=== PATIENT | female | born 1955 | race Caucasian/White ===

== ENCOUNTER 2021-04-13 18:15 | Emergency (ER) | payer MEDICARE, MEDICAID, SELFPAY ==
[2021-04-13 18:41] VITALS: BP 160/85; PULSE 69; RESP 18; TEMP 37.4; O2SAT 95
[2021-04-13] MEDS: nitroglycerin 1 gm/inch oint Pkt 0.5 INCH TOPICAL (21:25)
--- NOTE | 2021-04-14 02:12 | XRR_ITS ---
PROCEDURE INFORMATION: Exam: XR Left Foot Exam date and time: 04/14/2021 2:12 AM Age: 65 years old Clinical indication: Pain; Toes; Left; Additional info: Toe pain TECHNIQUE: Imaging protocol: XR Left foot. Views: 3 or more views. COMPARISON: No relevant prior studies available. FINDINGS: Bones/joints: Low density bone consistent with osteopenia/osteoporosis. Soft tissues: Normal. XR/XR foot LT min 3V* [id number] IMPRESSION: No acute findings.
--- NOTE | 2021-04-14 02:12 | USR_ITS ---
PROCEDURE INFORMATION: Exam: US Duplex Left Lower Extremity Arteries Or Arterial Bypass Grafts Exam date and time: 04/14/2021 2:12 AM Age: 65 years old Clinical indication: Pain; Toes; Left; Additional info: Toe discoloration TECHNIQUE: Imaging protocol: Left Real-time duplex scan of the arteries or arterial bypass grafts of the left lower extremity with 2-D eubanks scale, color Doppler flow and spectral waveform analysis. Images documented and saved. COMPARISON: CR (LOW EXM, ) 04/14/2021 2:39 AM FINDINGS: Left common femoral artery: No occlusion or significant stenosis. Normal waveform. Left superficial femoral artery: No occlusion or significant stenosis. Normal waveform. Left popliteal artery: 6-1 velocity spike above and below the proximal left popliteal artery consistent with greater than 75% stenosis. Left calf/foot arteries: No occlusion or significant stenosis in the visualized arteries. Normal waveforms. Dorsalis pedis artery is patent. US/[place] [id number] IMPRESSION: 6-1 velocity spike above and below the proximal left popliteal artery consistent with greater than 75% stenosis.
--- NOTE | 2021-04-14 02:26 | W.ED.GENADLT ---
HPI - General Adult General: Chief complaint: General Medical Stated complaint: DX W/RAYNAUD'S PHENOMENON:TOES BLACK/BURNING Time Seen by Provider: 04/13/21 20:48 Source: patient Mode of arrival: ambulatory Limitations: no limitations History of Present Illness: HPI narrative: 65-year-old female states she been having discoloration to her left great toe along with some pain over the last month. She states she is seen her nurse practitioner who believed that it was Raynaud's. States the pain is increasing. States pain is currently a 4 out of 10. Denies any other injuries. Denies any fever. Associated symptoms: Deny chest pain, dyspnea, headache(s), nausea, rash or vomiting Review of Systems Const: Denies: fever(s), chills, body aches or change in appetite Eyes: Denies: blurry vision or eye discomfort ENMT: Denies: throat pain or dental pain Card: Denies: chest pain Resp: Denies: dyspnea GI: Denies: abdominal pain, nausea, vomiting or diarrhea : Denies: dysuria Musc: Reports: extremity pain Skin/Breast: Denies: rash Neuro: Denies: headache(s) Psych: Denies: depression Toan/Lymph: Denies: easy bruising All/Imm: Denies: urticaria Physical Exam Const: COMMON NORMALS: no acute distress, patient oriented x3 and healthy appearing HENMT: COMMON NORMALS: normocephalic and atraumatic HEAD & SCALP: normocephalic and atraumatic Eye: COMMON NORMALS: Equal, round and reactive pupils present and EOMs intact bilaterally PUPIL: Yes Equal, round and reactive pupils present Neck/C-Spine: COMMON NORMALS: full ROM and supple Chest: COMMONS NORMALS: normal inspection of the chest and normal palpation of entire chest wall Resp: COMMON NORMALS: normal respiratory effort, No retractions, No use of accessory muscles and clear to auscultation bilaterally AUSCULTATION: clear to auscultation bilaterally Cardio: COMMON NORMALS: regular rate, regular rhythm and No murmurs present (Cardio) RATE: regular rate RHYTHM: regular rhythm GI: COMMON NORMALS: Normal to inspection, nondistended, normoactive bowel sounds present, Soft to palpation, non-tender and no masses PALPATION: Yes Soft to palpation Extremity: COMMON NORMALS: full ROM NARRATIVE EXTREMITY EXAM: Bluish discoloration to the left toe distal pulses intact Neuro: COMMON NORMALS: patient oriented x3, moves all extremities and no focal motor deficits Psych: COMMON NORMALS: mental status grossly normal, Normal thought process present and cooperative THOUGHT PROCESS: Normal thought process present Skin: COMMON NORMALS: no rashes or lesions noted and no wounds GENERAL SKIN EXAM: no rashes or lesions noted Course Vital Signs: Vital signs: Vital Signs Temperature 99.3 F 04/13/21 18:41 Pulse Rate 69 04/13/21 18:41 Respiratory Rate 18 04/13/21 18:41 Blood Pressure 160/85 04/13/21 18:41 Pulse Oximetry 95 04/13/21 18:41 MDM - General Adult MDM Narrative: Medical decision making narrative: Patient presents here with toe discoloration has been going on for little over a month. Ultrasound here does show stenosis in the popliteal artery. She has dorsal pedis and posterior tib pulses. I spoke to Dr. Adams who recommended follow-up in his clinic in 1 to 2 days and will have her take baby aspirin daily. Patient is to return if pain worsens. She understands agrees to plan. Lab Data: Labs: Lab Results 04/14/21 Range/Units 02:24 WBC 8.4 (4.0-10.0) 10^3/ uL RBC 4.65 (4.1-5.3) 10^6/u L Hgb 15.7 H (11.5-15.3) g/dL Hct 45.9 (37.0-47.0) % MCV 98.7 (81-99) fl MCH 33.8 (28.0-34.0) pg MCHC 34.2 (30.0-36.0) g/dL RDW 13.6 (12.1-15.1) % Plt Count 217 (130-400) 10^3/c mm MPV 9.7 (7.4-10.4) fL Neut % (Auto) 63.9 % Lymph % (Auto) 28.2 % [place] % (Auto) 5.7 % Eos % (Auto) 1.0 % Baso % (Auto) 0.6 % Neut # (Auto) 5.35 (1.8-7.7) 10^3/u L Lymph # (Auto) 2.4 (0.8-4.8) 10^3/u L [place] # (Auto) 0.5 (0.2-0.9) 10^3/u L Eos # (Auto) 0.1 (0.0-0.8) 10^3/u L Baso # (Auto) 0.1 (0.0-0.1) 10^3/u L Nucleated RBC % (a uto) 0 % Nucleated RBCs # 0.0 /100WBC Discharge Plan Discharge Patient Disposition: Home Clinical Impression: Popliteal artery stenosis, left Condition: Stable Prescriptions: New aspirin 81 mg tablet,chewable 81 mg PO DAILY Qty: 30 RF: 0 Discharge Orders: Discharge ED (Routine); Ordered 04/14/21 Ordered By: Georgina Jackson Referrals: David Casillas M.D [Physician] - 1-3 days Ines New [Primary Care Provider] - Discharge Diet: Advance as tolerated Discharge Activity: Resume usual activity Patient Instructions: Peripheral Vascular Disorders (ED) Coding Level of Care Code ED Shipping Services Sales Representative for Chg Fwd Exam Comprehensive
[2021-04-14 02:33] LABS: Basophils # 0.1 10^3/uL (0.0-0.1); Basophils % 0.6 %; Eosinophils # 0.1 10^3/uL (0.0-0.8); Hematocrit 45.9 % (37.0-47.0); Hemoglobin 15.7 g/dL (11.5-15.3); Lymphocytes # 2.4 10^3/uL (0.8-4.8); Lymphocytes % 28.2 %; Mean Corpuscular HGB Conc 34.2 g/dL (30.0-36.0); Mean Corpuscular Hemoglobin 33.8 pg (28.0-34.0); Mean Corpuscular Volume 98.7 fl (81-99); Mean Platelet Volume 9.7 fL (7.4-10.4); Monocytes # 0.5 10^3/uL (0.2-0.9); Monocytes % 5.7 %; Neutrophils # 5.35 10^3/uL (1.8-7.7); Neutrophils % 63.9 %; Nucleated Red Blood Cells % 0 %; Platelet Count 217 10^3/cmm (130-400); Red Blood Count 4.65 10^6/uL (4.1-5.3); Red Cell Distribution Width 13.6 % (12.1-15.1); White Blood Count 8.4 10^3/uL (4.0-10.0)
[2021-04-14] MEDS: diphenoxylate/atropine Tablet 1 TAB PO (02:40)
[2021-04-14 04:35] VITALS: BP 157/82; PULSE 62; RESP 17; O2SAT 96
--- NOTE | 2021-04-14 14:18 | DCPLANNER ---
campaign management senior manager had message to schedule a follow up appointment for patient with [facility]. campaign management senior manager called [facility], spoke with Vicki, gave clinic patients information. A follow up appointment is scheduled for Saturday, April 17, 2021 at 10:[address] Davison. campaign management senior manager called patient and gave patient the appointment information.
--- NOTE | 2021-04-22 11:58 | DCPLANNER ---
Patient had a follow up appointment scheduled for 04.17.21 with [facility] - appointment was cancelled.
== END 2021-04-14 04:35 | disposition home or self-care (01) ==
PROVIDERS: Emergency Provider Emergency Medicine; PCP Nurse Practitioner Family
DX: I70.202 Unspecified atherosclerosis of native arteries of extremities, left leg (principal)
CPT/HCPCS: 73630; 85025; 93926; 99283

== ENCOUNTER 2021-05-29 08:21 | Outpatient (CLI) | payer MEDICARE, MEDICAID, SELFPAY ==
--- NOTE | 2021-05-29 08:30 | CT_ITS ---
WS: [id number] CTA ABDOMINAL AORTA WITH RUNOFF TECHNIQUE: Contrast enhanced CTA of the abdominal aorta with bilateral lower extremity runoff. Multip lanar reformatted images were obtained. MIP reformats were also reviewed. CLINICAL INFORMATION: I73.9 - Peripheral vascular disease, unspecified COMPARISON: None. DLP: 1719.[address] scans at [facility] use at least one of these dose optimization techniques: automated e xposure control; mA and/or kV adjustment per patient size (includes targeted exams where dose is matc hed to clinical indication); or iterative reconstruction. FINDINGS: Normal caliber abdominal aorta with moderate calcified atheromatous disease. Celiac and SMA origins are patent. Mild to moderate stenosis proximal SMA. Renal artery origins are patent. SHIRA is patent.Heterogeneous peripheral enhancing lesion dome liver measuring 1.9 x 2.7 CM. This is indetermi nant and may represent cavernous hemangioma but metastatic disease not excluded. This can be further evaluated with ultrasound and/or triphasic liver CT. Cholecystectomy. Thickening of both adrenal glan ds left greater than right. Normal renal parenchymal enhancement. No hydronephrosis. Normal pancreati c parenchymal enhancement. Normal GE junction. Sigmoid diverticulosis. Chronic anterior wedging lower thoracic spine. Mild chronic compression super ior endplate L3. RIGHT: Right common iliac artery is patent with moderate calcified atheromatous disease. External and internal iliac arteries are patent. Common femoral artery is patent. Mild stenosis of the SFA origin . Deep femoral artery is patent. Superficial femoral artery is patent to the adductor hiatus. Mild st enosis proximal popliteal artery which remains patent. Diminutive and stenotic popliteal artery with multisegmental moderate to severe stenosis above the knee. Popliteal artery remains patent. Severe st enosis at the level of the knee joint. Diminutive but patent three-vessel runoff to the ankle. LEFT: Left common iliac artery is patent with moderate calcified atheromatous disease. Internal iliac artery is patent. External iliac artery is patent. Common femoral artery is patent. Deep femoral art seymour is patent. Moderate stenosis of the SFA origin which remains patent. Superficial femoral artery i s patent to the adductor hiatus. Moderate stenosis proximal popliteal artery. Multilevel moderate to severe segmental stenosis popliteal artery is nearly occluded just above the knee and at the knee jourdan nt. Short segment of occlusion at the level of the knee joint in the popliteal fossa. Reconstitution with severe stenosis at the trifurcation. Tiny atrophic dominant two-vessel runoff to the ankle. Poor flow in the posterior tibial artery which is essentially occluded. CT/CT angio abd aorta runof [id number] IMPRESSION: 1. RIGHT: Moderate to severe multilevel segmental stenosis right popliteal art seymour worse at the level of the knee joint. Popliteal artery remains patent to th e trifurcation with persistent but diminutive three-vessel runoff to the ankle. 2. LEFT: Multilevel moderate to severe segmental stenosis popliteal artery whi ch is occluded or nearly occluded at the level of the knee joint. This reconsti tutes with severe stenosis at the trifurcation and poor dominant two-vessel ru noff to the ankle. 3. Normal caliber abdominal aorta. Mild to moderate stenosis proximal SMA. 4. Suspicious heterogeneous irregular peripheral enhancing lesion dome of the liver measuring 1.9 x 2.7 CCM. This is indeterminant and may represent cavernou s hemangioma but metastatic disease not excluded. This can be further evaluated with ultrasound and/or triphasic liver CT. 5. Prior cholecystectomy.
[2021-05-29 09:40] LABS: Blood Urea Nitrogen 15 mg/dL (8-23)
[2021-05-29] MEDS: iohexol 350 mg/mL 100 mL Btl IV (09:55)
== END 2021-05-29 08:22 | disposition home or self-care (01) ==
LOC: RAD 08:24
PROVIDERS: PCP Nurse Practitioner Family; Visit Provider Internal Medicine Cardiovascular Disease
DX: I73.9 Peripheral vascular disease, unspecified (principal); I70.8 Atherosclerosis of other arteries; Z90.49 Acquired absence of other specified parts of digestive tract
CPT/HCPCS: 36415; 75635; 82565; 84520

== ENCOUNTER 2021-06-03 10:57 | Outpatient (CLI) | payer MEDICARE, MEDICAID, SELFPAY ==
--- NOTE | 2021-06-03 11:10 | USCV_ITS ---
Magana Edwige Age: 65 Gender: F : 1955 Exam Date: 06/03/2021 11:36 Ordering Phys: Shireen Goode MD ([email or web address]) Technologist: Cherry Hooper Exam Location: [facility] [place] Indication: EMBOLIC EVENT BP: / HR: 56 Rhythm: Sinus Technical Quality: Technically difficult study MEASUREMENTS (Male / Female) Normal Values 2D ECHO LV Diastolic Diameter PLAX 3.5 cm 4.2 - 5.9 / 3.9 - 5.3 cm LV Systolic Diameter PLAX 2.0 cm LV Chamber Size 3.5 cm IVS Diastolic Thickness 1.3 cm 0.6 - 1.0 / 0.6 - 0.9 cm IVS Systolic Thickness 1.2 cm LVPW Diastolic Thickness 1.4 cm 0.6 - 1.0 / 0.6 - 0.9 cm LVPW Systolic Thickness 2.2 cm RV Chamber Size 3.3 cm LVOT Diameter 2.7 cm LV Ejection Fraction 2D Teich 73.9 % LV Ejection Fraction MOD 2C 46.3 % LV Ejection Fraction 2C AL 49.7 % LA Diameter 2.9 cm LA Width 3.8 cm LA Height 4.1 cm RA Width 3.2 cm RA Height 3.9 cm Aorta at Sinotubular Diameter 3.5 cm M-MODE LV Diastolic Diameter MM 1.9 cm 4.2 - 5.9 / 3.9 - 5.3 cm LV Systolic Diameter MM 0.6 cm LV Ejection Fraction MM Teich 95.8 % IVS Diastolic Thickness MM 0.7 cm 0.6 - 1.0 / 0.6 - 0.9 cm IVS Systolic Thickness MM 0.9 cm LVPW Diastolic Thickness MM 0.7 cm 0.6 - 1.0 / 0.6 - 0.9 cm LVPW Systolic Thickness MM 0.8 cm Aortic Annulus Diameter 3.5 cm LA Ao Ratio MM 0.8 MV E Point Septal Separation 0.3 cm DOPPLER AV Peak Velocity 84.0 cm/s LVOT Peak Velocity 58.0 cm/s AV Area Cont Eq vti 5.2 cm squared AV Area Cont Eq pk 4.0 cm squared MV Area PHT 3.6 cm squared Mitral E to A Ratio 0.8 MV E' Velocity 24.5 cm/s Mitral E to MV E' Ratio 4.5 Mitral E to LV E' Lateral Ratio 6.1 Mitral E to LV E' Septal Ratio 3.6 TR Peak Velocity 208.5 cm/s TR Peak Gradient 17.4 mmHg TR Mean Velocity 160.8 cm/s TR Mean Gradient 11.7 mmHg TR Velocity Time Integral 64.1 cm TV Peak E Velocity 50.0 cm/s Right Atrial Pressure 3.0 mmHg Pulmonary Artery Systolic Pressu 20.4 mmHg PV Peak Velocity 50.0 cm/s RV Acceleration Time 0.2 s RV Ejection Time 0.3 s RV AcT/ET 0.5 FINDINGS Left Ventricle Normal left ventricular cavity size. Mildly decreased left ventricular systolic function. Left ventricular ejection fraction is estimated at 50 %. There is hypokinesis of basal to mid inferolateral galo. Grade II diastolic dysfunction, moderately elevated filling pressures. Right Ventricle Normal right ventricular size and systolic function. Right ventricular systolic pressure 25 mmHg. Right Atrium Normal right atrial size. Left Atrium Left atrial not well visualized. Possibly mildly increased left atrial size. Mitral Valve Mild mitral annular calcification. No mitral valve stenosis. Trace mitral valve regurgitation. Aortic Valve Aortic valve not well visualized. No aortic valve stenosis. No aortic valve regurgitation. Tricuspid Valve Tricuspid valve not well visualized. Pulmonic Valve Pulmonic valve not well visualized. Pericardium No pericardial effusion. Aorta Aorta not well visualized. CONCLUSIONS 1. This is a technically difficult study. 2. Normal left ventricular cavity size. Mildly decreased left ventricular systolic function. Left ventricular ejection fraction is estimated at 50 %. There is hypokinesis of basal to mid inferolateral galo. Grade II diastolic dysfunction, moderately elevated filling pressures. 3. Pulmonary artery pressure estimated 25 mmHg. 4. No prior similar studies to compare. Shireen Goode MD (Electronically Signed) Final Date: 03 June 2021 13:25 S
== END 2021-06-03 10:58 | disposition home or self-care (01) ==
LOC: RAD 11:00
PROVIDERS: PCP Nurse Practitioner Family; Visit Provider Internal Medicine Cardiovascular Disease
DX: I73.9 Peripheral vascular disease, unspecified (principal); I10 Essential (primary) hypertension
CPT/HCPCS: 93306

== ENCOUNTER → 2022-02-15 10:38 | Outpatient (BNVA) | payer MEDICARE, MEDICAID, SELFPAY | PROVIDERS: PCP Nurse Practitioner Family; Visit Provider Nurse Practitioner Family | DX: M54.59 Other low back pain (principal); M25.551 Pain in right hip; M47.896 Other spondylosis, lumbar region; M16.11 Unilateral primary osteoarthritis, right hip | CPT/HCPCS: 72080; 72100; 73502 ==

== ENCOUNTER 2022-02-18 16:49 | Inpatient (IN) | payer MEDICARE, MEDICAID, SELFPAY ==
[2022-02-18] VITALS (7 sets, daily range): BP systolic 132–180; BP diastolic 68–80; PULSE 57–69; RESP 14–22; TEMP 36.6; O2SAT 97–98; BMI 20.9; BMI 21.8
--- NOTE | 2022-02-18 17:00 | ECG_ITS ---
[facility] Test Date: 2022-02-18 Pat Name: Edwige Magana Department: Room: Gender: Female Hvac Technician: : 1955 Requested By: Travis Jack Order Number: [id number] Heather MD: David Casillas M.D. Measurements Intervals [place] Rate: 58 P: 59 DE: 167 QRS: 68 QRSD: 94 T: 61 QT: 442 QTc: 437 Interpretive Statements SINUS BRADYCARDIA NONSPECIFIC T-WAVE ABNORMALITY No previous ECG available for comparison Electronically Signed On 02-18-2022 18:53:28 CDT by David Casillas M.D. [id number]
--- NOTE | 2022-02-18 17:00 | XRR_ITS ---
PROCEDURE INFORMATION: Exam: XR Chest Exam date and time: 02/18/2022 5:42 PM Age: 66 years old Clinical indication: Chest wall pain; Additional info: Chest pain TECHNIQUE: Imaging protocol: Radiologic exam of the chest. Views: 1 view. COMPARISON: CR XR thoracolumbar junct [id number] 02/15/2022 11:00 AM FINDINGS: Lungs: The lungs are clear. Pleural spaces: Unremarkable. No pleural effusion. No pneumothorax. Heart/Mediastinum: Unremarkable. No cardiomegaly. Bones/joints: Unremarkable. XR/XR chest 1V portable [id number] IMPRESSION: No acute cardiopulmonary abnormality.
--- NOTE | 2022-02-18 17:26 | ED_ITS ---
HPI - Chest Pain General: Chief Complaint: Chest Pain Stated Complaint: CHEST PAIN Time Seen by Provider: 02/18/22 16:49 Source: patient Mode of arrival: EMS Limitations: no limitations History of Present Illness: 66-year-old female with a known history of peripheral vascular disease who still is actively smoking comes in complaining of chest pain has been going on for over a day now. States pain radiates at times into the left side of the jaw and into the shoulders and back. She did not get diaphoretic with that she did get mildly short of breath. She does take aspirin daily as well as atorvastatin and propranolol. She denies any fever sweats or chills. She denies any nausea vomiting or diarrhea with this. She is not had previous cardiac evaluation for coronary artery disease. Previous echocardiogram did show some hypokinesis in the inferior region she was scheduled for stress test but it has not yet been completed MD complaint: chest pain Pertinent past history: other (Peripheral vascular disease) Onset (ago): hour(s) Timing of current episode: episodic Prior episodes: Yes Onset: during rest Pain location: substernal and left chest Pain radiation: left arm, back, neck and jaw/teeth Severity: moderate Quality: aching and heaviness Relieving factors: nothing Exacerbating factors: nothing Associated symptoms: Reports dyspnea; Deny abdominal pain, diaphoresis, fever(s), leg edema, nausea, palpitations, sense of impending doom, syncope or vomiting Treatment prior to arrival: none Risk Factors: Coronary artery disease risk factors: smoking history, hyperlipidemia and hypertension Review of Systems Const: Denies: fever(s), chills, fatigue, malaise or diaphoresis ENMT: Denies: throat pain, ear or mastoid pain, nasal discharge or nasal congestion Card: Reports: chest pain; Denies: palpitations, edema, swelling of feet/ankles or syncope Resp: Reports: dyspnea; Denies: productive cough, non-productive cough or wheezing GI: Denies: abdominal pain, nausea or vomiting : Denies: flank pain, difficulty voiding, dysuria, urinary frequency or urinary urgency Skin/Breast: Denies: rash or pruritus [facility] ED PFSH: Medical History Adrenal gland anomaly Chest pain CHF (congestive heart failure), NYHA class III Hip dislocation, right Hyperlipidemia Hypertension Liver cell damage PAD (peripheral artery disease) Pancreatitis Seizure Stomach disease Surgical History History of appendectomy Hx of cholecystectomy Tubal ligation status Family History Other CAD (coronary artery disease) Social History Smoking and tobacco status: current every day smoker Female Reproductive History: Spontaneous abortions: No Physical Exam Const: GENERAL APPEARANCE: cooperative and comfortable ORIENTATION/CONSCIOUSNESS: Yes awake, Yes oriented to person, Yes oriented to place and Yes oriented to time HENMT: COMMON NORMALS: normocephalic, atraumatic and hearing grossly normal bilaterally HEAD & SCALP: normocephalic and atraumatic Neck/C-Spine: COMMON NORMALS: no JVD Resp: COMMON NORMALS: normal respiratory effort, No retractions, No use of accessory muscles and clear to auscultation bilaterally AUSCULTATION: clear to auscultation bilaterally Cardio: COMMON NORMALS: no JVD, regular rate, regular rhythm and No murmurs present (Cardio) RATE: regular rate RHYTHM: regular rhythm GI: COMMON NORMALS: Soft to palpation and No hepatosplenomegaly present AUSCULTATION: Yes normoactive bowel sounds PALPATION: Yes Soft to palpation, No Tenderness to palpation present (GI), No Guarding due to palpation present (GI) and Yes No hepatosplenomegaly present Extremity: COMMON NORMALS: normal to inspection, capillary refill normal, no clubbing, cyanosis or edema, no calf tenderness and no pedal edema Neuro: SENSORIUM/ORIENTATION: Yes oriented to person, Yes oriented to place and Yes oriented to time Skin: COMMON NORMALS: no rashes or lesions noted GENERAL SKIN EXAM: no rashes or lesions noted Course Vital Signs: Vital signs: Vital Signs Temperature 97.6 F 02/19/22 04:00 Pulse Rate 66 02/19/22 05:12 Respiratory Rate 17 02/19/22 04:00 Blood Pressure 125/71 02/19/22 04:00 Pulse Oximetry 96 02/19/22 04:00 MDM - Chest Pain Medical Decision Making Patient having anginal-like symptoms. She is reporting improvement and resolution of symptoms after nitro. She did have a stress test 2 days ago is not available in the system at this point. We will go ahead and place her in observation given her Plavix Lovenox and Nitropaste. Discussed with hospitalist orders written. Anticipating cardiology consult. Medical Records I reviewed the patient's medical records. Lab Data I reviewed the patient's lab results. : 02/19/22 01:54 02/19/22 01:54 Radiology Impressions Chest X-Ray 02/18/22 17:00 IMPRESSION: No acute cardiopulmonary abnormality. Head CT 02/18/22 18:55 IMPRESSION: No acute intracranial abnormality. Laboratory Results WBC 6.5 10^3/uL (4.0-10.0) 02/18/22 17:35 RBC 3.82 10^6/uL (4.1-5.3) L 02/18/22 17:35 Hgb 13.3 g/dL (11.5-15.3) 02/18/22 17:35 Hct 38.7 % (37.0-47.0) 02/18/22 17:35 MCV 101.3 fl (81-99) H 02/18/22 17:35 MCH 34.8 pg (28.0-34.0) H 02/18/22 17:35 MCHC 34.4 g/dL (30.0-36.0) 02/18/22 17:35 RDW 14.0 % (12.1-15.1) 02/18/22 17:35 Plt Count 196 10^3/cmm (130-400) 02/18/22 17:35 MPV 10.7 fL (7.4-10.4) H 02/18/22 17:35 Neut % (Auto) 55.0 % 02/18/22 17:35 Lymph % (Auto) 37.9 % 02/18/22 17:35 [place] % (Auto) 5.7 % 02/18/22 17:35 Eos % (Auto) 0.8 % 02/18/22 17:35 Baso % (Auto) 0.3 % 02/18/22 17:35 Neut # (Auto) 3.57 10^3/uL (1.8-7.7) 02/18/22 17:35 Lymph # (Auto) 2.5 10^3/uL (0.8-4.8) 02/18/22 17:35 [place] # (Auto) 0.4 10^3/uL (0.2-0.9) 02/18/22 17:35 Eos # (Auto) 0.1 10^3/uL (0.0-0.8) 02/18/22 17:35 Baso # (Auto) 0.0 10^3/uL (0.0-0.1) 02/18/22 17:35 Nucleated RBC % (auto) 0 % 02/18/22 17:35 Nucleated RBCs # 0.0 /100WBC 02/18/22 17:35 D-Dimer 0.66 ug/mIFEU (0-0.59) H 02/18/22 17:35 Sodium 136 mmol/L (136-145) 02/18/22 17:35 Potassium 4.0 mmol/L (3.5-5.1) 02/18/22 17:35 Chloride 101 mmol/L (98-107) 02/18/22 17:35 Carbon Dioxide 25 mmol/L (22-29) 02/18/22 17:35 Anion Gap 14.0 (5-19) 02/18/22 17:35 BUN 21 mg/dL (8-23) 02/18/22 17:35 Creatinine 0.6 mg/dL (0.5-0.9) 02/18/22 17:35 GFR Calculation 100.0 mL/min (90-130) 02/18/22 17:35 Glucose 85 mg/dL (65-115) 02/18/22 17:35 Estimat Average Glucose 91 02/18/22 17:35 Hemoglobin A1c 4.8 % (4.0-6.0) 02/18/22 17:35 Calculated Osmolality 284 mOsm/kg (285-295) L 02/18/22 17:35 Calcium 8.7 mg/dL (8.5-10.5) 02/18/22 17:35 Total Bilirubin 0.2 mg/dL (0.15-1.2) 02/18/22 17:35 AST 11 U/L (0-32) 02/18/22 17:35 ALT < 5 U/L (0-33) 02/18/22 17:35 Alkaline Phosphatase 52 IU/L (35-105) 02/18/22 17:35 Troponin T Baseline 8 ng/L (0-10) 02/18/22 17:35 C-Reactive Protein 3.0 mg/L (0.0-4.9) 02/18/22 17:35 Total Protein 6.1 g/dL (6.6-8.7) L 02/18/22 17:35 Albumin 3.6 g/dL (3.5-5.2) 02/18/22 17:35 Globulin 2.5 g/dL (1.3-4.6) 02/18/22 17:35 TSH 1.76 uIU/mL (0.27-4.20) 02/18/22 17:35 Discharge Plan Discharge Patient Disposition: Admitted As Inpatient Admit Provider: Checo Browning Clinical Impression: Unstable angina pectoris, PAD (peripheral artery disease), Chest pain, Hypertension Condition: Stable Coding Level of Care Code ED Foster Parent for Chg Fwd Exam Comprehensive
[2022-02-18 17:48] LABS: Basophils % 0.3 %; Eosinophils # 0.1 10^3/uL (0.0-0.8); Eosinophils % 0.8 %; Hematocrit 38.7 % (37.0-47.0); Hemoglobin 13.3 g/dL (11.5-15.3); Lymphocytes # 2.5 10^3/uL (0.8-4.8); Lymphocytes % 37.9 %; Mean Corpuscular HGB Conc 34.4 g/dL (30.0-36.0); Mean Corpuscular Hemoglobin 34.8 pg (28.0-34.0); Mean Corpuscular Volume 101.3 fl (81-99); Mean Platelet Volume 10.7 fL (7.4-10.4); Monocytes # 0.4 10^3/uL (0.2-0.9); Monocytes % 5.7 %; Neutrophils # 3.57 10^3/uL (1.8-7.7); Nucleated Red Blood Cells % 0 %; Platelet Count 196 10^3/cmm (130-400); Red Blood Count 3.82 10^6/uL (4.1-5.3); White Blood Count 6.5 10^3/uL (4.0-10.0)
--- NOTE | 2022-02-18 18:01 | PC.PHAR ---
pt states she takes care of her own medications-pt states Dr.Sinha mayorga her lisinopril 40mg daily filled on 01/06/22,lipitor 80mg daily filled on 12/21/21 90d/s, and spironolactone 25mg daily filled on 12/11/21 90d/s 2 weeks ago-pt states she is only taking the medications entered-
[2022-02-18] MEDS: nitroglycerin 1 gm/inch oint Pkt 1 INCH TOPICAL (18:02)
[2022-02-18 18:11] LABS: Troponin(5th) Baseline 8 ng/L (0-10)
[2022-02-18 18:13] LABS: Alanine Aminotransferase < 5 U/L (0-33); Albumin Level 3.6 g/dL (3.5-5.2); Alkaline Phosphatase 52 IU/L (35-105); Aspartate Amino Transferase 11 U/L (0-32); Blood Urea Nitrogen 21 mg/dL (8-23); Calcium 8.7 mg/dL (8.5-10.5); Carbon Dioxide 25 mmol/L (22-29); Chloride 101 mmol/L (98-107); Creatinine Clr Calc Pharmacy 66.9103; Globulin 2.5 g/dL (1.3-4.6); Glucose 85 mg/dL (65-115); Osmolality Calculated 284 mOsm/kg (285-295); Sodium 136 mmol/L (136-145); Total Bilirubin 0.2 mg/dL (0.15-1.2); Total Protein 6.1 g/dL (6.6-8.7)
--- NOTE | 2022-02-18 18:17 | PM.HP ---
Providers/Chief Complaint Primary Care Provider: Ines New Chief Complaint: CHEST PAIN History of Present Illness Edwige Magana is a 66 year old female with established history of peripheral artery disease, recently saw Dr. Goode for syncopal event, Dr. Goode requested records from outside facility for recent carotid Doppler and a stress test, as per the patient this was done this Tuesday however I am not able to see the report yet patient is here for chief complaint of worsening of chest pain radiating towards her jaw. Previous echo revealed ejection fraction 50% grade 2 diastolic dysfunction. Patient is presenting with chief complaint of intermittent chest pain which started yesterday around afternoon. Patient is stating that she has been having stabbing sensation just below her left breast, she would notice that this pain sometimes will travel towards her left jaw, associated with numbness of left arm. She has not noticed recent fever, diarrhea, upper respite tract infection. She has presented to the hospital for worsening of her symptoms today. In the ER Baseline troponin is 8, EKG is nonspecific T wave changes, heart rate in 60s blood pressure stable She is extremely weak lethargic Noticed right-sided facial droop however NIH will be 1 for mild right-sided facial droop Not a candidate for tPA however she does not have typical strokelike symptoms She does carry history of seizure I spoke with Dr. Goode, Dr. Connor stating that she did receive the results of carotid Doppler and stress test which are sitting on her desk, she will review them and let us know, I have informed the patient and her family that Dr. Goode will see her tomorrow morning She will be kept n.p.o. Initiated ACS protocol I would not give her metoprolol because of borderline low heart rate continue antiepileptics Review of Systems Const: Reports: chills and body aches Eyes: Denies: change in vision ENMT: Denies: throat pain Card: Reports: chest pain Resp: Reports: dyspnea GI: Denies: abdominal pain : Denies: flank pain Musc: Reports: back pain Skin/Breast: Denies: rash Neuro: Reports: headache(s) Psych: Reports: anxiety Endo: Denies: polyuria Toan/Lymph: Denies: easy bruising All/Imm: Denies: urticaria Medications/Allergies Home Medications Medication Instructions Recorded Confirmed Last Taken Type escitalopram oxalate 20 mg tablet 20 mg PO DAILY 04/30/21 02/18/22 02/18/22 History lorazepam 1 mg tablet 1 mg PO BID PRN 04/30/21 02/18/22 Unknown History potassium chloride 20 mEq 20 meq PO QPM 04/30/21 02/18/22 Unknown History tablet,extended release ropinirole 1 mg tablet 1 mg PO BEDTIME 04/30/21 02/18/22 Unknown History bupropion HCl 150 mg 24 hr tablet, 150 mg PO QAM 07/30/21 02/18/22 02/18/22 History extended release pantoprazole 40 mg tablet,delayed 40 mg PO DAILY 07/30/21 02/18/22 02/18/22 History release propranolol 40 mg tablet 40 mg PO BID tab 07/30/21 02/18/22 02/18/22 12:00 History aspirin 81 mg chewable tablet 81 mg PO BEDTIME 02/18/22 02/18/22 Unknown History carbamazepine 200 mg tablet See Rx Instructions .ROUTE .COMPLEX 02/18/22 02/18/22 02/18/22 History divalproex 250 mg tablet,extended 500 mg PO BID 02/18/22 02/18/22 02/18/22 12:00 History release 24 hr ergocalciferol (vitamin D2) 1,250 50,000 unit PO Q7D 02/18/22 02/18/22 02/13/22 History mcg (50,000 unit) capsule tizanidine 4 mg tablet 4 mg PO BEDTIME 02/18/22 02/18/22 02/18/22 History Allergies Allergy/AdvReac Type Severity Reaction Status Date / Time No Known Allergies Allergy Verified 02/18/22 17:53 PFSH Acute PFSH: Medical History (Updated 02/18/22 @ 18:51 by Checo Browning MD) Adrenal gland anomaly Chest pain CHF (congestive heart failure), NYHA class III Hip dislocation, right Hyperlipidemia Hypertension Liver cell damage PAD (peripheral artery disease) Pancreatitis Seizure Stomach disease Surgical History History of appendectomy Hx of cholecystectomy Tubal ligation status Family History (Updated 02/18/22 @ 18:50 by Checo Browning MD) Other CAD (coronary artery disease) Social History Smoking and tobacco status: current every day smoker Female Reproductive History: Spontaneous abortions: No Vitals/I&O/Wt Last Vital Signs Pulse 65 02/18/22 17:31 Resp 16 02/18/22 17:31 BP 132/80 02/18/22 17:31 Weight last 48 hrs Weight 60.781 kg Physical Exam Narrative: Pleasant cooperative female Extreme lethargic and fatigued Mild right-sided facial droop However not significant facial asymmetry NIH would be 1 No weakness of upper or lower extremity Sensations intact Good handgrips Patient has chronic left-sided ptosis S1, S2, did not appreciate JVD however her heart rate did sound distant No respiratory distress Hemodynamically stable Abdomen soft No audible stridor or wheezing Data : 02/18/22 17:35 02/18/22 17:35 A&P Assessment and plan (1) Chest pain: Status: Acute (2) CHF (congestive heart failure), NYHA class III: Status: Acute Qualifiers: Congestive heart failure type: systolic Congestive heart failure chronicity: chronic Qualified Code(s): I50.22 - Chronic systolic (congestive) heart failure (3) PAD (peripheral artery disease): Status: Acute (4) Seizure: Status: Acute Plan Unstable angina Rule out ACS Carries history of peripheral arterial disease Recently had carotid duplex and stress test Dr. Goode has records from outside facility Will keep her n.p.o. after midnight She has been given therapeutic dose of Lovenox Currently she is complaining of chest pain 2 out of 10 Nitropaste has been applied She is describing her chest pain is stabbing in nature radiating towards her left jaw intermittently Rule out pericarditis, heart sound heart sounds distant No fever, no leukocytosis, check CRP and ESR I have requested echo I will start her on aspirin, atorvastatin, hold off on lisinopril and metoprolol for borderline blood pressure and heart rate in 60s In case of further worsening overnight cardiology will be notified She will be n.p.o. after midnight Check D-dimer Continue antiepileptics she does carry history of seizures Carotid artery disease, peripheral artery disease, no active pain of legs at rest Mild right-sided facial droop Will request CT head without contrast Family has been updated She is full code DVT prophylaxis currently on therapeutic Lovenox Recent syncopal event like related to seizure Attestations Medical Necessity Statement*: Anticipating less than 2 midnights for evaluation of unstable angina Time Spent in Patient Care: 35 Coding Level of Care Code Acute Pulverizer Tender for Stella Sánchez Diagnoses Chest pain R07.9 CHF (congestive heart failure), NYHA class III I50.22 Congestive heart failure type: systolic Congestive heart failure chronicity: chronic PAD (peripheral artery disease) I73.9 Seizure R56.9
[2022-02-18] MEDS: clopidogrel 300 mg Tablet PO (18:26)
[2022-02-18] MEDS: enoxaparin 80 mg/0.8 mL Syringe 60 MG SUBCUT (18:27)
--- NOTE | 2022-02-18 18:55 | CTR_ITS ---
PROCEDURE INFORMATION: Exam: CT Head Without Contrast Exam date and time: 02/18/2022 7:11 PM Age: 66 years old Clinical indication: Weakness, extremity; Right; Additional info: RT facial droop TECHNIQUE: Imaging protocol: Computed tomography of the head without contrast. Radiation optimization: All CT scans at this facility use at least one of these dose optimization techniques: automated exposure control; mA and/or kV adjustment per patient size (includes targeted exams where dose is matched to clinical indication); or iterative reconstruction. COMPARISON: No relevant prior studies available. RADIATION DOSE METRICS: Total DLP (mGy-cm): 818.59 FINDINGS: Brain: Mild atrophy and mild white matter chronic microvascular changes are noted. No hemorrhage or evidence of acute infarction. Cerebral ventricles: No ventriculomegaly. Paranasal sinuses: Visualized sinuses are unremarkable. No fluid levels. Mastoid air cells: Visualized mastoid air cells are well aerated. Bones/joints: Unremarkable. No acute fracture. Soft tissues: Unremarkable. CT/CT head wo con* [id number] IMPRESSION: No acute intracranial abnormality.
--- NOTE | 2022-02-18 19:00 | ECG_ITS ---
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 Measurements Intervals [place] Rate: 61 P: 56 [place]: 172 QRS: 71 QRSD: 96 T: 64 QT: 445 QTc: 449 Interpretive Statements SINUS RHYTHM NONSPECIFIC T-WAVE ABNORMALITY Compared to ECG 02/18/2022 17:27:49 Sinus bradycardia no longer present T-wave abnormality still present Electronically Signed On 02-18-2022 18:58:06 CDT by David Casillas M.D. [id number]
[2022-02-18 19:12] LABS: Troponin 5 2HR 7.87 ng/L (0-10)
[2022-02-18 19:13] LABS: D Dimer 0.66 ug/mIFEU (0-0.59)
[2022-02-18 19:15] LABS: Troponin 5 2HR Delta -0.07 ABS# (0-10)
--- NOTE | 2022-02-18 19:30 | PC.NURSE ---
received report. 66 yo female presents from Dr office for CP. fleeting, sharp in nature. resolved once here. she states she had another episode in CT scan but was fleeting as well. She had stress test on tuesday and her physician told her that her heart was weak . She denies pain currently. Troponins have been negative. A/O x 4. even non labored respirations. NSR on monitor, no ectopy noted. no edema noted to extremities. patient to be admitted for observation.
--- NOTE | 2022-02-18 21:17 | USCV_ITS ---
Edwige Magana Age: 66 Gender: F : 1955 Exam Date: 02/18/2022 22:07 Ordering Phys: Checo Browning MD Technologist: ELIF Exam Location: [facility] Indication: Chest pain BP: 180 / 76 HR: 65 Rhythm: Sinus Technical Quality: Adequate MEASUREMENTS (Male / Female) Normal Values 2D ECHO LV Diastolic Diameter PLAX 4.4 cm 4.2 - 5.9 / 3.9 - 5.3 cm LV Systolic Diameter PLAX 3.2 cm IVS Diastolic Thickness 1.4 cm 0.6 - 1.0 / 0.6 - 0.9 cm IVS Systolic Thickness 1.6 cm LVPW Diastolic Thickness 1.4 cm 0.6 - 1.0 / 0.6 - 0.9 cm LVPW Systolic Thickness 1.1 cm LVOT Diameter 2.3 cm LV Ejection Fraction 2D Teich 54.8 % LV Ejection Fraction MOD 2C 70.2 % LV Ejection Fraction 2C AL 72.9 % LA Diameter 3.0 cm LA Width 2.8 cm LA Height 4.5 cm RA Width 3.5 cm RA Height 3.7 cm Aorta at Sinotubular Diameter 3.3 cm IVC Diameter 1.6 cm M-MODE Aortic Annulus Diameter 3.5 cm LA Ao Ratio MM 0.9 MV E Point Septal Separation 0.4 cm DOPPLER AV Peak Velocity 105.0 cm/s LVOT Peak Velocity 59.0 cm/s AV Area Cont Eq vti 2.5 cm squared AV Area Cont Eq pk 2.3 cm squared MV Peak Velocity 79.0 cm/s MV Area PHT 1.9 cm squared Mitral E to A Ratio 0.6 MV E' Velocity 25.5 cm/s Mitral E to MV E' Ratio 7.0 Mitral E to LV E' Lateral Ratio 7.5 Mitral E to LV E' Septal Ratio 6.7 TR Peak Velocity 214.5 cm/s TR Peak Gradient 18.4 mmHg TV Peak E Velocity 37.0 cm/s Right Atrial Pressure 5.0 mmHg Pulmonary Artery Systolic Pressu 23.4 mmHg PV Peak Velocity 79.0 cm/s RV Acceleration Time 0.1 s RV Ejection Time 0.3 s RV AcT/ET 0.4 FINDINGS Left Ventricle Normal left ventricular size and systolic function. Left ventricular ejection fraction is estimated at 50-55 %. There is moderate hypokinesis of basal to mid inferior and basal to mid inferolateral galo. Grade II diastolic dysfunction, moderately elevated filling pressures. Right Ventricle Normal right ventricular size and systolic function. Right ventricular systolic pressure 23.4 mmHg. Right Atrium Normal right atrial size. Left Atrium Normal left atrial size. Mitral Valve Structurally normal mitral valve. No mitral valve stenosis. Trace mitral valve regurgitation. Aortic Valve Structurally normal trileaflet aortic valve. No aortic valve stenosis. No aortic valve regurgitation. Tricuspid Valve Structurally normal tricuspid valve. No tricuspid valve stenosis. Trace to mild tricuspid valve regurgitation. Pulmonic Valve Pulmonic valve not well visualized. No pulmonary valve stenosis. No significant pulmonary valve regurgitation. Pericardium No pericardial effusion. Aorta Normal size aortic root and proximal ascending aorta. IVC Normal IVC dimension with >50% respiratory change of the inferior vena cava. CONCLUSIONS 1. Normal left ventricular size and systolic function. Left ventricular ejection fraction is estimated at 50-55 %. There is moderate hypokinesis of basal to mid inferior and basal to mid inferolateral galo. Grade II diastolic dysfunction, moderately elevated filling pressures. 2. No significant valvular abnormality. 3. Normal pulmonary artery pressure. 4. There seems to be no significant change when compared to study dated 06/03/21. Shireen Goode MD (Electronically Signed) Final Date: 19 February 2022 18:19 S
[2022-02-18 21:20] LABS: Thyroid Stimulating Hormone 1.76 uIU/mL (0.27-4.20)
[2022-02-18] MEDS: LORazepam 1 mg Tablet PO (21:45)
[2022-02-18] MEDS: carBAMazepine 200 mg Tablet 400 MG PO (21:45)
[2022-02-18] MEDS: dextrose 50% syringe 50 mL 25 ML IVP (21:45)
[2022-02-18] MEDS: tizanidine 4 mg Tablet PO (21:45)
[2022-02-18] MEDS: ropinirole 1 mg Tablet PO (21:45)
[2022-02-18] MEDS: sodium chloride 0.9% 1,000 ML 75 ML IV (21:45)
--- NOTE | 2022-02-18 21:55 | PC.NURSE ---
Patient received from ED via wheelchair. Patient able to ambulate with minimum contact assist to bed. No difficulty observed. Patient denies chest pain. Instructed patient regarding NPO status and all medications administered. Patient verbalized complete understanding. Patient reports very small open area to right buttock which she takes care per instructions from her PCP. Patient placed on telemetry. No other distress observed. Will continue to monitor.
[2022-02-18 22:20] LABS: Estmated Average Glucose 91; Hemoglobin A1C 4.8 % (4.0-6.0)
--- NOTE | 2022-02-18 23:00 | ECG_ITS ---
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 Measurements Intervals [place] Rate: 59 P: 57 OR: 191 QRS: 68 QRSD: 94 T: 56 QT: 430 QTc: 428 Interpretive Statements SINUS BRADYCARDIA NONSPECIFIC T-WAVE ABNORMALITY Compared to ECG 02/18/2022 18:44:28 Sinus rhythm no longer present T-wave abnormality still present Electronically Signed On 02-20-2022 12:27:44 CDT by Jay Davis M.D. [id number]
[2022-02-18 23:44] LABS: Troponin 5 6HR 8.92 ng/L (0-10)
[2022-02-18 23:49] LABS: Troponin 5 6HR Delta 0.92 ng/L (0-12)
[2022-02-19] VITALS (20 sets, daily range): BP systolic 125–182; BP diastolic 60–88; PULSE 56–82; RESP 7–18; TEMP 36.4–36.7; O2SAT 94–99
[2022-02-19 02:07] LABS: Basophils % 0.4 %; Eosinophils # 0.1 10^3/uL (0.0-0.8); Eosinophils % 1.3 %; Hematocrit 34.6 % (37.0-47.0); Hemoglobin 12.1 g/dL (11.5-15.3); Lymphocytes # 2.4 10^3/uL (0.8-4.8); Mean Corpuscular Hemoglobin 34.7 pg (28.0-34.0); Mean Corpuscular Volume 99.1 fl (81-99); Mean Platelet Volume 10.5 fL (7.4-10.4); Monocytes # 0.4 10^3/uL (0.2-0.9); Neutrophils % 35.9 %; Nucleated Red Blood Cells % 0 %; Platelet Count 179 10^3/cmm (130-400); Red Blood Count 3.49 10^6/uL (4.1-5.3); Red Cell Distribution Width 13.5 % (12.1-15.1); White Blood Count 4.5 10^3/uL (4.0-10.0)
[2022-02-19 02:27] LABS: Anion Gap 9.8 (5-19); Blood Urea Nitrogen 20 mg/dL (8-23); Calcium 8.1 mg/dL (8.5-10.5); Carbon Dioxide 26 mmol/L (22-29); Chloride 105 mmol/L (98-107); Glucose 84 mg/dL (65-115); Magnesium 1.8 mg/dL (1.7-2.3); Osmolality Calculated 286 mOsm/kg (285-295); Potassium 3.8 mmol/L (3.5-5.1); Sodium 137 mmol/L (136-145)
[2022-02-19] MEDS: enoxaparin 60 mg/0.6 mL Syringe SUBCUT (05:39)
--- NOTE | 2022-02-19 05:43 | PM.CONSULT ---
Providers/Reason For Consult Consulting Physician/Specialty*: Dr. Goode, cardiology Reason for Consult*: Chest pain Attending Physician: Checo Browning MD Primary Care Provider: Iens New History of Present Illness History of Present Illness Edwige Magana is a 66 year old female with past medical history of seizure, hypertension, hyperlipidemia, chronic active smoker and peripheral arterial disease.? She is smoking a pack or more of cigarettes. She had passing out episode in December where she found herself on floor. She did not go to ER/ PCP. She was seen in office 3 weeks back. She had Lexiscan myocardial perfusion scan on February 16 at [facility]. It was reported as normal left ventricle size with EF of 52%. With reversible ischemia in inferior inferoseptal segments of left ventricle. She also had carotid duplex that showed greater than 70% stenosis of right ICA with no hemodynamically significant stenosis of left ICA. Flow velocity in right ICA reported as 155 and proximal 134 in mid and 144 and distal segment. She presented yesterday with complaints of sharp stabbing chest discomfort that on 1 occasion radiated to her jaw as well as her left arm and persisted for about 30 minutes.She came to ER and nitropaste , plavix 300 mg PO x 1 and lovenox was administered. She has remained CP free last night and this morning. EKG with sinus rhythm and howie specific ST-T wave changes. Troponins flat without any delta change. Review of Systems Const: Reports: chills and body aches Eyes: Denies: change in vision ENMT: Denies: throat pain Card: Reports: chest pain; Denies: irregular heart rhythm, edema or swelling of feet/ankles Resp: Reports: dyspnea GI: Denies: abdominal pain : Denies: flank pain Musc: Reports: back pain Skin/Breast: Denies: rash Neuro: Reports: headache(s), frequent falls and dizziness Psych: Reports: anxiety Endo: Denies: polyuria or tired all the time Toan/Lymph: Denies: easy bruising, petechiae or purpura All/Imm: Denies: urticaria Medications/Allergies Home Medications Medication Instructions Recorded Confirmed Last Taken Type escitalopram oxalate 20 mg tablet 20 mg PO DAILY 04/30/21 02/18/22 02/18/22 History lorazepam 1 mg tablet 1 mg PO BID PRN 04/30/21 02/18/22 Unknown History potassium chloride 20 mEq 20 meq PO QPM 04/30/21 02/18/22 Unknown History tablet,extended release ropinirole 1 mg tablet 1 mg PO BEDTIME 04/30/21 02/18/22 Unknown History bupropion HCl 150 mg 24 hr tablet, 150 mg PO QAM 07/30/21 02/18/22 02/18/22 History extended release pantoprazole 40 mg tablet,delayed 40 mg PO DAILY 07/30/21 02/18/22 02/18/22 History release propranolol 40 mg tablet 40 mg PO BID tab 07/30/21 02/18/22 02/18/22 12:00 History aspirin 81 mg chewable tablet 81 mg PO BEDTIME 02/18/22 02/18/22 Unknown History carbamazepine 200 mg tablet See Rx Instructions .ROUTE .COMPLEX 02/18/22 02/18/22 02/18/22 History divalproex 250 mg tablet,extended 500 mg PO BID 02/18/22 02/18/22 02/18/22 12:00 History release 24 hr ergocalciferol (vitamin D2) 1,250 50,000 unit PO Q7D 02/18/22 02/18/22 02/13/22 History mcg (50,000 unit) capsule tizanidine 4 mg tablet 4 mg PO BEDTIME 02/18/22 02/18/22 02/18/22 History Allergies Allergy/AdvReac Type Severity Reaction Status Date / Time No Known Allergies Allergy Verified 02/18/22 17:53 Current Medications Generic Name Dose Route Start Last Admin Trade Name Freq PRN Reason Stop Dose Admin Aspirin 81 mg 02/18/22 21:17 02/18/22 21:34 Aspirin 81 Mg Chew Tablet PO Not Given BEDTIME PING Carbamazepine 400 mg 02/18/22 21:30 02/18/22 21:45 Carbamazepine 200 Mg Tablet PO 400 mg BEDTIME PING Administration Enoxaparin Sodium 60 mg 02/19/22 07:00 02/19/22 05:39 Enoxaparin 60 Mg/0.6 Ml Syringe SUBCUT 60 mg Q12H PING Administration Sodium Chloride 1,000 mls @ 75 mls/hr 02/18/22 21:17 02/18/22 21:45 Sodium Chloride 0.9% IV 75 mls/hr .[id number] PING Administration Lorazepam 1 mg 02/18/22 21:17 02/18/22 21:45 Lorazepam 1 Mg Tablet PO 1 mg BID PRN Administration Anxiety Ropinirole HCl 1 mg 02/18/22 21:17 02/18/22 21:45 Ropinirole 1 Mg Tablet PO 1 mg BEDTIME PING Administration Tizanidine HCl 4 mg 02/18/22 21:17 02/18/22 21:45 Tizanidine 4 Mg Tablet PO 4 mg BEDTIME PING Administration PFSH Acute PFSH: Medical History Adrenal gland anomaly Chest pain CHF (congestive heart failure), NYHA class III Hip dislocation, right Hyperlipidemia Hypertension Liver cell damage PAD (peripheral artery disease) Pancreatitis Seizure Stomach disease Surgical History History of appendectomy Hx of cholecystectomy Tubal ligation status Family History Other CAD (coronary artery disease) Social History Smoking and tobacco status: current every day smoker Female Reproductive History: Spontaneous abortions: No Vitals/I&O/Wt Last Vital Signs Temp 97.6 F 02/19/22 04:00 Pulse 66 02/19/22 05:12 Resp 17 02/19/22 04:00 BP 125/71 02/19/22 04:00 Pulse Ox 96 02/19/22 04:00 02/18/22 02/18/22 02/19/22 14:59 22:59 06:59 Intake Total 120 / 120 120 / 240 Output Total 700 / 700 Balance 120 / 120 -580 / -460 Weight last 48 hrs Weight 141 lb 11.2 oz Weight 139 lb 3.2 oz Weight 134 lb Physical Exam Narrative: Gen: frail appearing lady HEENT: No significant pallor, EOMI Neck: No JVD, no lymphadenopathy RS: CTAB/L, No wheezes or rales CVS: S1, S2 regular, No nurnur, rub or gallop SUPERVISOR CUTTING AND SEWING ROOM: AAOx3, No FND Ext: No edema, cyanosis Skin: mild forearm buising, No rash/ breakdown Data : 02/19/22 01:54 07/01/22 01:54 Other data: 06/03/21 Echo CONCLUSIONS ?1.? This is a technically difficult study. ?2.? Normal left ventricular cavity size. Mildly decreased left ?ventricular systolic function. Left ventricular ejection ?fraction is estimated at 50 %.? There is hypokinesis of basal to ?mid inferolateral galo. Grade II diastolic dysfunction, ?moderately elevated filling pressures. ?3.? Pulmonary artery pressure estimated 25 mmHg. ?4.? No prior similar studies to compare. 05/29/21 Aorta runoff IMPRESSION: 1.? RIGHT: Moderate to severe multilevel segmental stenosis right popliteal artery worse at the level of the knee joint. Popliteal artery remains patent to the trifurcation with persistent but diminutive three-vessel runoff to the ankle. 2.? LEFT: Multilevel moderate to severe segmental stenosis popliteal artery which is occluded or nearly occluded at the level of the knee joint. This reconstitutes with? severe stenosis at the trifurcation and poor dominant two-vessel runoff to the ankle. 3.? Normal caliber abdominal aorta. Mild to moderate stenosis proximal SMA. 4.? Suspicious heterogeneous irregular peripheral enhancing lesion dome of the liver measuring 1.9 x 2.7 CCM. This is indeterminant and may represent cavernous hemangioma but metastatic disease not excluded. This can be further evaluated with ultrasound and/or triphasic liver CT. 5.? Prior cholecystectomy. ? 04/14/2021 Left lower extremity arterial duplex IMPRESSION: 6-1 velocity spike above and below the proximal left popliteal artery consistent with greater than 75% stenosis. ? A&P Assessment and plan (1) Chest pain: Stress test at outside facility reported as reversible ischemia in inferior and inferseptal segments. -Multiple CAD risk factors HTN, PAD and smoker -Echo overnight with possible hypokinesis in basa inferior and basal inferolateral segments -continue ASA, plavix, statin. -will proceed with [facility] later today Status: Acute (2) CHF (congestive heart failure), NYHA class III: Status: Acute Qualifiers: Congestive heart failure chronicity: chronic Congestive heart failure type: systolic Qualified Code(s): I50.22 - Chronic systolic (congestive) heart failure (3) PAD (peripheral artery disease): Status: Acute (4) Hypertension: Status: Acute Qualifiers: Hypertension type: essential hypertension Qualified Code(s): I10 - Essential (primary) hypertension (5) Hyperlipidemia: Status: Acute Qualifiers: Hyperlipidemia type: mixed hyperlipidemia Qualified Code(s): E78.2 - Mixed hyperlipidemia Plan Carotid artery stenosis: will need neck CTA and outpatient referal to Dr. Miranda based on the findings. H/O seizures Thank you for allowing me to participate in patient's care. Please feel free to call with questions or concerns. Consult Attestations Time Spent in Patient Care: 16 - 35 minutes Coding Level of Care Code Acute System Planning Engineer for g Fwd Diagnoses Chest pain R07.9 CHF (congestive heart failure), NYHA class III I50.22 Congestive heart failure chronicity: chronic Congestive heart failure type: systolic PAD (peripheral artery disease) I73.9 Hypertension I10 Hypertension type: essential hypertension Hyperlipidemia E78.2 Hyperlipidemia type: mixed hyperlipidemia
[2022-02-19 06:48] LABS: Glucose Point of Care 74 mg/dL (70-110)
--- NOTE | 2022-02-19 07:45 | XACV_ITS ---
Exam Room: 1 Ht: 170 cm Wt: 64 kg BSA: 1.74 m2 Gender: Female : 1955 Any Known Allergies: No known allergies Exam Priority: Routine Procedure(s): Procedure Description: Diagnostic procedure Diagnostic Cath Status: Elective Diagnostic Findings * The patient has chest pain. Stress test done at an outside hospital showed a moderate area of reversible ischemia in the distribution of the right coronary artery. It was recommended she undergo coronary angiography. * Coronary angiography reveals right coronary artery dominance. The left main coronary artery contains a 15 to 20% ostial stenosis. The remainder of the left main coronary artery is normal. The LAD is heavily calcified proximally and under the calcification there is a 40 to 50% eccentric stenosis. More distally in the mid vessel there is a 40 to 50% stenosis. There was no ischemia noted on the stress test in the distribution of the LAD. The circumflex is essentially a normal vessel aside from some minor plaquing. The septal branches of the LAD and the distal LAD provide collateral flow to the distal right coronary artery. * The right coronary artery is the dominant vessel and contains diffuse plaque proximally to beyond the acute margin. There is then a chronic total occlusion which is lengthy between just beyond the acute margin all the way to the takeoff of the posterior descending and posterior left ventricular branches. I did place a guide catheter in the artery and used several wires to try to negotiate the chronic total occlusion. This was unsuccessful. As mentioned, there is collateral flow from the LAD to the distal right. * A left ventricular end-diastolic pressure was obtained and a pullback was obtained. A left ventriculogram was not done. Conclusions 1. Chronic total occlusion of the right coronary artery with unsuccessful attempted intervention. 15 to 20% ostial left main stenosis. 40 to 50% proximal and mid LAD stenoses. Recommendations * This patient should be treated medically. Stress test revealed ischemia in the distribution of the right coronary artery only. There is adequate collateral flow. Long-acting nitrate will be added to the already existing beta-lizzeth and antiplatelet agents. Interventional RX Recommendation: medical therapy and/or counseling Diagnostic RX Recommendation: medical therapy and/or counseling Anticoagulation: Heparin Pressures Phase:Rest AO : 142 / 74 ( 101 ) @ 2:39:00 PM 127 / 72 ( 97 ) @ 2:43:00 PM 169 / 84 ( 117 ) @ 2:48:00 PM 173 / 85 ( 118 ) @ 2:48:00 PM 141 / 78 ( 106 ) @ 2:49:00 PM LV : 166 / -5 / 15 @ 2:48:00 PM 165 / -5 / 16 @ 2:48:00 PM Valves Phase:DefaultPhase AV : 0.0 @ 2:02:20 PM 0.0 @ 2:02:20 PM AV Mean Gradient: 0.0 @ 2:02:20 PM Clinical Evaluation EBL: 5mL-10mL Procedural Details Procedure Consent Obtained. Current Diagnosis : Chest Pain. Pre-Procedure Time Out. Identified patient by full name and date of as verbalized by the patient/guarantor. Does the consent match the physician's order: Yes. Accurate & Complete Informed Consent: Yes. Inpatient/Outpatient History & Physical on Chart: Yes. If H&P is completed, is and addenduem needed: No; If yes, is the addendum complete: N/A. Visualize and Verify Site with Patient/Guarantor: N/A. Relevant Radiology Images available: Yes. Pre-op teaching completed and patient verbalized understanding. The risks, benefits, and alternatives of sedation and/or procedure were discussed by physician. The patient agrees to continue. Procedure started. Multimedia Authoring Specialist Indications: New Onset Angina. Chest Pain Symptom Assessment: Typical Angina Symptoms. Correct patient, site and procedure confirmed by cath team. Current diagnosis: Chest Pain. PERRLA. Strong, equal hand cone classifier tender bilaterally. Lungs clear x 5 lobes. IV Site on Arrival: 20 gauge in the left anticubital. IV Fluids: 0.9% NaCl at KVO. 200 mL infused prior to solder making laborer. Pre Procedural Pulses: right radial was 2+. Pre Procedural Pulses: bilateral dorsalis pedis was 2+. Oxygen started at 2liters/min via nasal canula. right groin was prepped with chloroprep then draped in the usual sterile fashion. right radial was prepped with chloroprep then draped in the usual sterile fashion. Physician notified. Baseline sample Acquired. HR: 58 BPM. Admit Source: In Patient. Physician arrived. Physician scrubbed in. Immediate Pre-Procedure Time Out. Correct Patient: Yes; Correct Procedure: Yes; Correct Site: Yes; Correct Patient Position: Yes; Correct Supplies: Yes; Dried Flammable Prep: Yes Blood Products Available: N/A;. Lidocaine 1% infiltrated to the right radial. Arterial access obtained. A 5 albanian TIG catheter in over wire. Multiple views taken of left coronary artery. Catheter redirected to the RCA. Multiple views taken of right coronary artery. Catheter removed over the standard wire. EDP Sample taken: LV 166/-6,15; HR: 67 BPM; SpO2: 99%. Pullback taken: LV 165/-6,16; AO 169/84(117); Mean: 0mmHg, Peak to Peak: 0mmHg, SEP: 20sec/min; HR: 67 BPM; SpO2: 98%. 6 albanian JR 4 guide catheter was inserted over the wire. Humboldt guidewire was advanced through the guide catheter to lesion in the mid RCA. Unable to cross lesion witb Humboldt wire. Humboldt wire removed. Runthrough guidewire was advanced through the guide catheter to lesion in the mid RCA. Unable to cross lesion with Runthrough wire. Runthrough wire removed. Guide catheter out. A TR Band was successful obtaining hemostatsis at the Right Radial artery insertion site. Post Procedure: Pulses reassessed and unchanged. PERRLA. Strong, equal hand cone classifier tender bilaterally. No VTE prophylaxis required. Medication's Wasted: Heparin = 1000 u. Medication's Wasted: Nitro = 49.8 mg. Total IV fluids: 50 mL. Post-op diagnosis: CAD. Complications: none. Estimated blood loss: 5mL-10mL. Responsiveness - Normal response to verbal stimuli; alert and oriented, PERRLA. Airway - Unaffected, no intervention required; spontaneous ventilation. Circulation: W/N/L, pulses unchanged. Nausea/Vomiting: No. Procedure completed. Patient transferred by wheelchair to [facility]. Vital chart was stopped. Access Site Site: Right Radial artery Sheath Size: 5 Fr Hemostasis Method: TR Band Hemostasis Success: Successful Procedure Medications Start: 1:11 PM Stop: 1:11 PM Medication: Benadryl Amount: 50 mg Route: I.V. Start: 1:17 PM Stop: 1:17 PM Medication: Fentanyl Amount: 50 mcg Route: I.V. Start: 1:26 PM Stop: 1:26 PM Medication: Versed Amount: 1 mg Route: I.V. Start: 1:37 PM Stop: 1:37 PM Medication: Nitrogylcerin Amount: 200 mcg Route: I.A. Start: 1:46 PM Stop: 1:46 PM Medication: Versed Amount: 1 mg Route: I.V. Start: 1:46 PM Stop: 1:46 PM Medication: Fentanyl Amount: 50 mcg Route: I.V. I, the attending physician, have reviewed and verified all procedure medications. Yes, all medications given per verbal order History/Risk Factors Hypertension: Yes Dyslipidemia: Yes Peripheral Arterial Disease (PAD): Yes Myocardial Infarction (NH): No Obesity: No Tobacco Use: Current/Recent(w/in 1 year) Prior Interventions PCI: No CABG: No Valve Surgery: No Report Signatures Finalized by Dr. Jay Davis MD on 02/19/2022 02:13 PM
[2022-02-19] MEDS: divalproex ER 250 mg Tablet (24H) 500 MG PO ×2 (08:21→17:04)
[2022-02-19] MEDS: propranolol 40 mg Tablet PO ×2 (08:21→17:04)
[2022-02-19] MEDS: clopidogrel 75 mg Tablet PO (08:21)
[2022-02-19] MEDS: atorvastatin 40 mg Tablet PO (08:21)
[2022-02-19] MEDS: carBAMazepine 200 mg Tablet PO ×2 (08:21→15:22)
[2022-02-19] MEDS: pantoprazole DR 40 mg Tablet PO (08:22)
[2022-02-19] MEDS: sodium chloride 0.9% 1,000 ML 75 ML IV (10:48)
[2022-02-19 11:13] LABS: Glucose Point of Care 81 mg/dL (70-110)
--- NOTE | 2022-02-19 11:22 | P.PN_ITS ---
Subjective Subjective: There is plan for angiogram today I do not appreciate any right-sided facial droop No events overnight Hemodynamic stable Appreciate cardiology recommendations Patient is still experiencing mild discomfort under her left breast, Vitals/I&O/Wt Last Vital Signs Temp 97.7 F 02/19/22 07:49 Pulse 68 02/19/22 08:27 Resp 18 02/19/22 08:27 BP 166/77 02/19/22 07:49 Pulse Ox 97 02/19/22 08:27 02/18/22 02/19/22 02/19/22 22:59 06:59 14:59 Intake Total 120 / 120 120 / 240 978.75 / 978.75 Output Total 700 / 700 Balance 120 / 120 -580 / -460 978.75 / 978.75 Weight last 48 hrs Weight 64.274 kg Weight 63.14 kg Weight 60.781 kg Physical Exam Narrative: Patient is n.p.o. Clinically looks dehydrated S1, S2 no active murmur identified, heart sounds are not muffled I do not appreciate JVD Abdomen soft Nonfocal neuro exam Saturating well on room air Fatigued and lethargic Data : 02/19/22 01:54 02/19/22 01:54 A&P Assessment and plan (1) Unstable angina pectoris: Status: Acute (2) Syncope: Status: Acute (3) CHF (congestive heart failure), NYHA class III: Status: Acute Qualifiers: Congestive heart failure type: systolic Congestive heart failure chronicity: chronic Qualified Code(s): I50.22 - Chronic systolic (congestive) heart failure (4) PAD (peripheral artery disease): Status: Acute (5) Seizure: Status: Acute Plan Unstable angina Plan for angiogram today N.p.o. History of seizure: Continue antiepileptics Patient is doing well on room air Clinically dehydrated Continue IV fluids She can have cardiac diet after her angiogram Currently she is getting therapeutic dose of Lovenox which will be changed after angiogram report She is full code She does have carotid artery disease which will need outpatient evaluation by Dr. Miranda She does have aspirin and a statin on board Attestations Medical Necessity Statement*: Continue medical management Time Spent in Patient Care: 30 Coding Level of Care Code Acute Case Work Aide for Stella Fwcapo Diagnoses Unstable angina pectoris I20.0 Syncope R55 CHF (congestive heart failure), NYHA class III I50.22 Congestive heart failure type: systolic Congestive heart failure chronicity: chronic PAD (peripheral artery disease) I73.9 Seizure R56.9
--- NOTE | 2022-02-19 13:02 | PC.NURSE ---
to cardiac bobcat driver/labor via w/c at this time
[2022-02-19] MEDS: sodium chloride 0.9% 1,000 ML 100 ML IV (14:30)
--- NOTE | 2022-02-19 14:53 | PC.NURSE ---
received from cardiac cardiac cath rn at 1430.report received.pt is awake but drowsy.alert and oriented x 4.right wrist with tr band on and inflated.no hematoma noted.right hand is warm to touch and with brisk capillary refill.palpable radial pulse noted distal to tr band.instructed in activity restrictions s/p radial artery procedure..and instructed to notify staff for any bleeding,pain,numbness,sob...or for any concerns at all.pt verb understanding of instructions.
[2022-02-19 17:24] LABS: Glucose Point of Care 78 mg/dL (70-110)
--- NOTE | 2022-02-19 19:09 | PC.NURSE ---
attempt to gradually remove air from tr band x 2...bled both times after 4 cc air removed.again instructed to pt that she should put no pressure on the right wrist /hand..and to notify staff for any bleeding,bruising .pt verb understanding of instructions
[2022-02-19] MEDS: LORazepam 1 mg Tablet PO (20:18)
[2022-02-19] MEDS: ropinirole 1 mg Tablet PO (20:18)
[2022-02-19] MEDS: tizanidine 4 mg Tablet PO (20:18)
[2022-02-19] MEDS: carBAMazepine 200 mg Tablet 400 MG PO (20:18)
[2022-02-19] MEDS: aspirin 81 mg Chew Tablet PO (20:18)
--- NOTE | 2022-02-19 21:58 | PC.NURSE ---
Patient s/p LHC via right radial artery. TR band in place. Received in report from HUSSAIN Philippe, that removal was delayed due to bleeding. Noted dried blood under and around band. Initiated air removal at 1930 removed 2ml of air every 20-30min until band came off at this time. No s/s of bleeding or hematoma formation observed. Cleaned site and covered 2x2 and bio-occlusive dressing. Patient does c/o mild tenderness to site. Instructed patient on site care and restrictions. Patient verbalized complete understanding. Will continue to monitor.
[2022-02-20] VITALS (7 sets, daily range): BP systolic 142–178; BP diastolic 73–95; PULSE 54–83; RESP 12–20; TEMP 36.5–36.7; O2SAT 96–99
--- NOTE | 2022-02-20 00:09 | PC.NURSE ---
Right wrist continues to remain without s/s of bleeding or hematoma formation. No distress observed. Will continue to monitor.
[2022-02-20] MEDS: acetaminophen 500 mg Tablet PO (03:44)
[2022-02-20 04:44] LABS: Basophils % 0.6 %; Eosinophils # 0.1 10^3/uL (0.0-0.8); Eosinophils % 1.2 %; Hematocrit 36.2 % (37.0-47.0); Hemoglobin 12.4 g/dL (11.5-15.3); Lymphocytes # 2.2 10^3/uL (0.8-4.8); Lymphocytes % 44.7 %; Mean Corpuscular HGB Conc 34.3 g/dL (30.0-36.0); Mean Corpuscular Hemoglobin 34.2 pg (28.0-34.0); Mean Corpuscular Volume 99.7 fl (81-99); Mean Platelet Volume 10.9 fL (7.4-10.4); Monocytes # 0.5 10^3/uL (0.2-0.9); Monocytes % 10.2 %; Neutrophils # 2.08 10^3/uL (1.8-7.7); Neutrophils % 43.3 %; Nucleated Red Blood Cells % 0 %; Platelet Count 195 10^3/cmm (130-400); Red Blood Count 3.63 10^6/uL (4.1-5.3); Red Cell Distribution Width 13.2 % (12.1-15.1); White Blood Count 4.8 10^3/uL (4.0-10.0)
[2022-02-20 05:04] LABS: Anion Gap 10.9 (5-19); Blood Urea Nitrogen 14 mg/dL (8-23); Calcium 8.4 mg/dL (8.5-10.5); Carbon Dioxide 26 mmol/L (22-29); Chloride 103 mmol/L (98-107); Glomerular Filtration Rate 123.4 mL/min (90-130); Glucose 85 mg/dL (65-115); Osmolality Calculated 282 mOsm/kg (285-295); Potassium 3.9 mmol/L (3.5-5.1); Sodium 136 mmol/L (136-145)
--- NOTE | 2022-02-20 07:11 | P.PN_ITS ---
Subjective Subjective: Edwige underwent coronary angiography yesterday. She has a chronic total occlusion of the distal right coronary artery which I was unable to open. She has excellent collateral flow in this area however. This is both bridging collateral flow and flow from the LAD system. Her circumflex is cliff l. She has 240 to 50% lesions in the LAD and a 15 to 20% ostial left main lesion. No other intervention is required. I started her on a long-acting nitrate. She feels fine this morning. Medications: Reviewed: Yes Vitals/I&O/Wt Last Vital Signs Temp 98.0 F 02/20/22 04:56 Pulse 54 L 02/20/22 05:10 Resp 20 H 02/20/22 04:56 BP 178/85 02/20/22 04:56 Pulse Ox 99 02/20/22 04:56 02/19/22 02/20/22 02/20/22 22:59 06:59 14:59 Intake Total 1977.083 / 2955.833 1280 / 4235.833 Output Total 500 / 950 1150 / 2100 Balance 1477.083 / 2005.833 130 / 2135.833 Weight last 48 hrs Weight 140 lb Weight 141 lb 11.2 oz Weight 139 lb 3.2 oz Weight 134 lb Physical Exam Narrative: GENERAL: In general she is comfortable at rest HEENT: Exam within normal limits. NECK: Supple without jugular vein distention. The carotid upstroke is normal without bruits. BACK: Exam normal. LUNGS: Clear. HEART: Regular rate and rhythm. ABDOMEN: Benign without organomegaly or tenderness. EXTREMITIES: No edema. The right radial artery area is flat and dry. There is a small amount of bruising down to the volar aspect of the hand. There is a rad ial pulse. No bleeding or hematoma. NEUROLOGIC: Exam normal. SKIN: Unremarkable. Data : 02/20/22 04:12 02/20/22 04:12 A&P Assessment and plan (1) Chest pain: Status: Acute (2) PAD (peripheral artery disease): Status: Acute (3) Seizure: Status: Acute (4) Hyperlipidemia: Status: Acute Qualifiers: Hyperlipidemia type: mixed hyperlipidemia Qualified Code(s): E78.2 - Mixed hyperlipidemia (5) Hypertension: Status: Acute (6) CAD (coronary artery disease): Status: Acute (7) Carotid stenosis: Status: Acute (8) Tobacco abuse: Status: Acute Plan She may be discharged today. No lifting more than 5 pounds with the right upper extremity for 2 days. I would send her home on Imdur 30 mg daily and aspirin. I do not feel strongly about the Plavix. Her other medications including the beta-lizzeth and LESVIA inhibitor should remain the same. She has an appointment several weeks down the line with Dr. Goode however needs to be seen in about a week with the nurse practitioner. This visit should also straighten out the issue of her carotids. She had an abnormal carotid duplex and probably needs a CTA of her neck. She is not very well versed in all of this and so we will need to be led through it fairly carefully. Attestations Medical Necessity Statement*: May be discharged today Coding Level of Care Code Established Pt Acute Radiology Physician Assistant for Chg Fwd Patient Type Established History Detailed Medical Decision Making Moderate Complexity Diagnoses Chest pain R07.9 PAD (peripheral artery disease) I73.9 Seizure R56.9 Hyperlipidemia E78.2 Hyperlipidemia type: mixed hyperlipidemia Hypertension I10 CAD (coronary artery disease) I25.10 Carotid stenosis I65.29 Tobacco abuse Z72.0
--- NOTE | 2022-02-20 07:19 | P.DS_ITS ---
Discharge Providers Date of Admission: 02/19/22 14:43 Date of Discharge: February 20, 2022 Attending Provider at Admission: Checo Browning MD Attending Provider at Discharge: Checo Browning MD Primary Care Provider: Ines New Diagnoses at Discharge Discharge Diagnosis (1) Chest pain: Status: Acute (2) PAD (peripheral artery disease): Status: Acute (3) Seizure: Status: Acute (4) Hyperlipidemia: Status: Acute Qualifiers: Hyperlipidemia type: mixed hyperlipidemia Qualified Code(s): E78.2 - Mixed hyperlipidemia (5) Hypertension: Status: Acute (6) CAD (coronary artery disease): Status: Acute (7) Carotid stenosis: Status: Acute (8) Tobacco abuse: Status: Acute Reason for Visit Reason for Visit: CHEST PAIN Discharge Data Studies Completed and Pending Completed Studies During Hospitalization Category Date Time Status CT head wo con* [id number] Urgent Cat Scan 02/18/22 18:55 Completed EMERGENCY DEPT TECH request for service Routine Exams 02/19/22 07:45 Completed XR chest 1V portable [id number] Stat Exams 02/18/22 17:00 Completed CV. echo complete* [id number] Routine Ultrasound 02/18/22 21:17 Completed Pending at discharge Category Date Time Status ESR [Erythrocyte Sedimentation Rate] Stat Lab 02/18/22 18:47 Received Miscellaneous Test Routine Lab 02/19/22 01:54 Received Radiology Impressions Chest X-Ray 02/18/22 17:00 IMPRESSION: No acute cardiopulmonary abnormality. Head CT 02/18/22 18:55 IMPRESSION: No acute intracranial abnormality. Laboratory Results WBC 4.8 10^3/uL (4.0-10.0) 02/20/22 04:12 RBC 3.63 10^6/uL (4.1-5.3) L 02/20/22 04:12 Hgb 12.4 g/dL (11.5-15.3) 02/20/22 04:12 Hct 36.2 % (37.0-47.0) L 02/20/22 04:12 MCV 99.7 fl (81-99) H 02/20/22 04:12 MCH 34.2 pg (28.0-34.0) H 02/20/22 04:12 MCHC 34.3 g/dL (30.0-36.0) 02/20/22 04:12 RDW 13.2 % (12.1-15.1) 02/20/22 04:12 Plt Count 195 10^3/cmm (130-400) 02/20/22 04:12 MPV 10.9 fL (7.4-10.4) H 02/20/22 04:12 Neut % (Auto) 43.3 % 02/20/22 04:12 Lymph % (Auto) 44.7 % 02/20/22 04:12 Refugio % (Auto) 10.2 % 02/20/22 04:12 Eos % (Auto) 1.2 % 02/20/22 04:12 Baso % (Auto) 0.6 % 02/20/22 04:12 Neut # (Auto) 2.08 10^3/uL (1.8-7.7) 02/20/22 04:12 Lymph # (Auto) 2.2 10^3/uL (0.8-4.8) 02/20/22 04:12 Refugio # (Auto) 0.5 10^3/uL (0.2-0.9) 02/20/22 04:12 Eos # (Auto) 0.1 10^3/uL (0.0-0.8) 02/20/22 04:12 Baso # (Auto) 0.0 10^3/uL (0.0-0.1) 02/20/22 04:12 Nucleated RBC % (auto) 0 % 02/20/22 04:12 Nucleated RBCs # 0.0 /100WBC 02/20/22 04:12 D-Dimer 0.66 ug/mIFEU (0-0.59) H 02/18/22 17:35 Sodium 136 mmol/L (136-145) 02/20/22 04:12 Potassium 3.9 mmol/L (3.5-5.1) 02/20/22 04:12 Chloride 103 mmol/L (98-107) 02/20/22 04:12 Carbon Dioxide 26 mmol/L (22-29) 02/20/22 04:12 Anion Gap 10.9 (5-19) 02/20/22 04:12 BUN 14 mg/dL (8-23) 02/20/22 04:12 Creatinine 0.5 mg/dL (0.5-0.9) 02/20/22 04:12 GFR Calculation 123.4 mL/min (90-130) 02/20/22 04:12 Glucose 85 mg/dL (65-115) 02/20/22 04:12 POC Glucose 78 mg/dL (70-110) 02/19/22 17:20 Estimat Average Glucose 91 02/18/22 17:35 Hemoglobin A1c 4.8 % (4.0-6.0) 02/18/22 17:35 Calculated Osmolality 282 mOsm/kg (285-295) L 02/20/22 04:12 Calcium 8.4 mg/dL (8.5-10.5) L 02/20/22 04:12 Magnesium 1.8 mg/dL (1.7-2.3) 02/19/22 01:54 Total Bilirubin 0.2 mg/dL (0.15-1.2) 02/18/22 17:35 AST 11 U/L (0-32) 02/18/22 17:35 ALT < 5 U/L (0-33) 02/18/22 17:35 Alkaline Phosphatase 52 IU/L (35-105) 02/18/22 17:35 Troponin T Baseline 8 ng/L (0-10) 02/18/22 17:35 Troponin T 120 Minute 7.87 ng/L (0-10) 02/18/22 18:48 Delta Troponin T -0.07 ABS# (0-10) L 02/18/22 18:48 Troponin T Hi Sens 6Hr 8.92 ng/L (0-10) 02/18/22 22:50 Troponin T Hi Sens 6Hr Delta 0.92 ng/L (0-12) 02/18/22 22:50 C-Reactive Protein 3.0 mg/L (0.0-4.9) 02/18/22 17:35 Total Protein 6.1 g/dL (6.6-8.7) L 02/18/22 17:35 Albumin 3.6 g/dL (3.5-5.2) 02/18/22 17:35 Globulin 2.5 g/dL (1.3-4.6) 02/18/22 17:35 TSH 1.76 uIU/mL (0.27-4.20) 02/18/22 17:35 Vitals Last Vital Signs Temp 98.0 F 02/20/22 04:56 Pulse 54 L 02/20/22 05:10 Resp 20 H 02/20/22 04:56 BP 178/85 02/20/22 04:56 Pulse Ox 99 02/20/22 04:56 Discharge Plan Discharge Patient Disposition: Home Condition: Stable Prescriptions: No Action ropinirole 1 mg tablet 1 mg PO BEDTIME 0RF potassium chloride 20 mEq tablet extended release 20 meq PO QPM 0RF escitalopram oxalate 20 mg tablet 20 mg PO DAILY 0RF lorazepam 1 mg tablet 1 mg PO BID PRN (Reason: Anxiety) 0RF propranolol 40 mg tablet 40 mg PO BID 0RF bupropion HCl 150 mg tablet extended release 24 hr 150 mg PO QAM 0RF pantoprazole 40 mg tablet,delayed release (DR/EC) 40 mg PO DAILY 0RF carbamazepine 200 mg tablet See Rx Instructions .ROUTE .COMPLEX 0RF Rx Instructions: 200mg po in the am and pm and 400mg at bedtime aspirin 81 mg tablet,chewable 81 mg PO BEDTIME 0RF ergocalciferol (vitamin D2) 1,250 mcg (50,000 unit) capsule 50,000 unit PO Q7D 0RF Rx Instructions: on sat tizanidine 4 mg tablet 4 mg PO BEDTIME 0RF divalproex 250 mg tablet extended release 24 hr 500 mg PO BID 0RF Referrals: Ines New [Primary Care Provider] - Patient Instructions: Opioid Safety Coding Level of Care Code Acute [facility] note Diagnoses Chest pain R07.9 PAD (peripheral artery disease) I73.9 Seizure R56.9 Hyperlipidemia E78.2 Hyperlipidemia type: mixed hyperlipidemia Hypertension I10 CAD (coronary artery disease) I25.10 Carotid stenosis I65.29 Tobacco abuse Z72.0
[2022-02-20] MEDS: clopidogrel 75 mg Tablet PO (09:18)
[2022-02-20] MEDS: isosorbide mononitrate ER 30 mg Tablet PO (09:18)
[2022-02-20] MEDS: sennosides-docusate Tablet 1 TAB PO (09:19)
[2022-02-20] MEDS: divalproex ER 250 mg Tablet (24H) 500 MG PO (09:19)
[2022-02-20] MEDS: propranolol 40 mg Tablet PO (09:19)
[2022-02-20] MEDS: atorvastatin 40 mg Tablet PO (09:19)
[2022-02-20] MEDS: pantoprazole DR 40 mg Tablet PO (09:19)
[2022-02-20] MEDS: lisinopril 10 mg Tablet PO (09:28)
[2022-02-20] MEDS: carBAMazepine 200 mg Tablet PO (09:30)
[2022-02-20 10:57] LABS: Erythrocyte Sedimentation Rate 2 mm/hr (0-15)
--- NOTE | 2022-02-20 11:19 | CTR_ITS ---
PROCEDURE INFORMATION: Exam: CTA Head With Contrast, Arteriography Exam date and time: 02/20/2022 2:22 PM Age: 66 years old Clinical indication: Weakness and other: RT facial droop; Additional info: TIA TECHNIQUE: Imaging protocol: Computed tomographic angiography of the head with contrast. Exam focused on the arteries. 3D rendering (Not supervised by radiologist): MIP and/or 3D reconstructed images were created by the technologist. Radiation optimization: All CT scans at this facility use at least one of these dose optimization techniques: automated exposure control; mA and/or kV adjustment per patient size (includes targeted exams where dose is matched to clinical indication); or iterative reconstruction. Contrast material: OMNI 350; Contrast volume: 95 ml; Contrast route: INTRAVENOUS (IV); COMPARISON: CT head wo con* [id number] 02/18/2022 7:11 PM RADIATION DOSE METRICS: Total DLP (mGy-cm): 1534.37 FINDINGS: ANTERIOR CIRCULATION: Right internal carotid artery: Atherosclerotic calcifications are seen involving the right cavernous internal carotid artery. Moderate stenosis is present. Right middle cerebral artery: Unremarkable. No occlusion or significant stenosis. No aneurysm. Right anterior cerebral artery: Unremarkable. No occlusion or significant stenosis. No aneurysm. Left internal carotid artery: Atherosclerotic calcifications are seen involving the left cavernous internal carotid artery. Mild stenosis is present. Left middle cerebral artery: Unremarkable. No occlusion or significant stenosis. No aneurysm. Left anterior cerebral artery: Unremarkable. No occlusion or significant stenosis. No aneurysm. POSTERIOR CIRCULATION: Right vertebral artery: There is mild stenosis of the distal right vertebral artery. Left vertebral artery: There is moderate stenosis of the left vertebral artery as it enters the dura and as it enters the foramen magnum. Basilar artery: There is mild stenosis of the mid basilar artery. Right posterior cerebral artery: Unremarkable. No occlusion or significant stenosis. No aneurysm. Left posterior cerebral artery: Unremarkable. No occlusion or significant stenosis. No aneurysm. Brain: No definite mass, cerebral edema, or midline shift. Cerebral ventricles: No ventriculomegaly. Bones/joints: Unremarkable. No acute fracture. Soft tissues: Unremarkable. PROCEDURE INFORMATION: Exam: CTA Neck With Contrast Exam date and time: 02/20/2022 2:22 PM Age: 66 years old Clinical indication: Weakness and other: RT facial droop; Additional info: TIA TECHNIQUE: Imaging protocol: Computed tomographic angiography of the neck with contrast. 3D rendering (Not supervised by radiologist): MIP and/or 3D reconstructed images were created by the technologist. Radiation optimization: All CT scans at this facility use at least one of these dose optimization techniques: automated exposure control; mA and/or kV adjustment per patient size (includes targeted exams where dose is matched to clinical indication); or iterative reconstruction. Contrast material: OMNI 350; Contrast volume: 95 ml; Contrast route: INTRAVENOUS (IV); COMPARISON: CT head wo [facility]* [id number] 02/18/2022 7:11 PM RADIATION DOSE METRICS: Total DLP (mGy-cm): 1534.37 FINDINGS: Right common carotid artery: There is mild atherosclerotic narrowing of the distal right common carotid artery. Right internal carotid artery: Atherosclerotic calcifications are present within the proximal right internal carotid artery. This is causing approximately 70% stenosis of the proximal right internal carotid artery. Right external carotid artery: There is severe stenosis of the right external carotid artery origin. Left common carotid artery: No stenosis. No dissection or occlusion. Left internal carotid artery: Atherosclerotic calcifications are present within the proximal left internal carotid artery. This is causing approximately 70% stenosis of the proximal left internal carotid artery. Left external carotid artery: No occlusion or stenosis of the origin. Right vertebral artery: There is minimal narrowing of the proximal right vertebral artery. The remaining right vertebral artery is widely patent. Left vertebral artery: There is mild stenosis of the left vertebral artery origin. The remaining left vertebral artery is widely patent. Soft tissues: Normal. No significant soft tissue swelling. Bones/joints: Moderate degenerative changes of the cervical spine are present. CT/CT angio headneck* [id number] IMPRESSION: 1. No acute abnormality. No large vessel occlusion. 2. Chronic findings as discussed above. IMPRESSION: Approximately 70% stenosis of the bilateral proximal internal carotid arteries REFERENCES: NASCET CRITERIA. The degree of internal carotid artery stenosis is based on NASCET criteria. Normal is no stenosis. Mild is less than 50% stenosis. Moderate is 50-69% stenosis. Severe is 70% to 99% stenosis. Total occlusion is no detectable patent lumen.
--- NOTE | 2022-02-20 11:27 | PM.DCS ---
Discharge Providers Date of Admission: 02/19/22 14:43 Date of Discharge: February 20, 2022 Attending Provider at Admission: Checo Browning MD Attending Provider at Discharge: Checo Browning MD Primary Care Provider: Ines New Diagnoses at Discharge Discharge Diagnosis (1) Chest pain: Status: Acute (2) PAD (peripheral artery disease): Status: Acute (3) Seizure: Status: Acute (4) Hyperlipidemia: Status: Acute Qualifiers: Hyperlipidemia type: mixed hyperlipidemia Qualified Code(s): E78.2 - Mixed hyperlipidemia (5) Hypertension: Status: Acute (6) CAD (coronary artery disease): Status: Acute (7) Carotid stenosis: Status: Acute (8) Tobacco abuse: Status: Acute Reason for Visit Reason for Visit: CHEST PAIN Hospital Course Hospital Course Mrs. Magana who has established history of carotid artery disease, peripheral arterial disease was recently seen by Dr. Goode for syncopal event presented to the hospital with intermittent chest pain. Troponins were unremarkable, EKG did not show typical ischemic changes, cardiology was consulted, she went for an angiogram Her angiogram did show chronic total occlusion of the distal right coronary artery which Dr. Davis was unable to open.? She has excellent collateral flow in this area however.? This is both bridging collateral flow and flow from the LAD system.? Her circumflex is normal.? She has 40 to 50% lesions in the LAD and a 15 to 20% ostial left main lesion. Imdur has been added by Dr. Davis she will follow-up with Dr. Connor and Sue Pelayo. She will also need Dr. Miranda's appointment for carotid intervention I will do CTA head and neck before her discharge. She has remained hemodynamically stable. Endorsing feeling better on the day of discharge. I have noticed sinus bradycardia, decrease the dose of propanolol to 10 mg daily instead of 40 mg, not a candidate of metoprolol at this point, she will be discharged on aspirin, atorvastatin, Imdur and lisinopril. Echo revealed EF 50 to 55%. Physical Exam Narrative: GENERAL: In general she is comfortable at rest HEENT: Exam within normal limits. NECK: Supple without jugular vein distention. The carotid upstroke is normal without bruits. BACK: Exam normal. LUNGS: Clear. HEART: Regular rate and rhythm. ABDOMEN: Benign without organomegaly or tenderness. EXTREMITIES: No edema.? The right radial artery area is flat and dry.? There is a small amount of bruising down to the volar aspect of the hand.? There is a radial pulse.? No bleeding or hematoma. NEUROLOGIC: Exam normal. SKIN: Unremarkable Discharge Data Studies Completed and Pending Completed Studies During Hospitalization Category Date Time Status CT head wo con* [id number] Urgent Cat Scan 02/18/22 18:55 Completed [employer] request for service Routine Exams 02/19/22 07:45 Completed XR chest 1V portable [id number] Stat Exams 02/18/22 17:00 Completed CV. echo complete* [id number] Routine Ultrasound 02/18/22 21:17 Completed Pending at discharge Category Date Time Status CTA head neck [CT angio headneck* [id number]] Routine Cat Scan 02/20/22 11:19 Ordered Radiology Impressions Chest X-Ray 02/18/22 17:00 IMPRESSION: No acute cardiopulmonary abnormality. Head CT 02/18/22 18:55 IMPRESSION: No acute intracranial abnormality. Laboratory Results WBC 4.8 10^3/uL (4.0-10.0) 02/20/22 04:12 RBC 3.63 10^6/uL (4.1-5.3) L 02/20/22 04:12 Hgb 12.4 g/dL (11.5-15.3) 02/20/22 04:12 Hct 36.2 % (37.0-47.0) L 02/20/22 04:12 MCV 99.7 fl (81-99) H 02/20/22 04:12 MCH 34.2 pg (28.0-34.0) H 02/20/22 04:12 MCHC 34.3 g/dL (30.0-36.0) 02/20/22 04:12 RDW 13.2 % (12.1-15.1) 02/20/22 04:12 Plt Count 195 10^3/cmm (130-400) 02/20/22 04:12 MPV 10.9 fL (7.4-10.4) H 02/20/22 04:12 Neut % (Auto) 43.3 % 02/20/22 04:12 Lymph % (Auto) 44.7 % 02/20/22 04:12 Crook % (Auto) 10.2 % 02/20/22 04:12 Eos % (Auto) 1.2 % 02/20/22 04:12 Baso % (Auto) 0.6 % 02/20/22 04:12 Neut # (Auto) 2.08 10^3/uL (1.8-7.7) 02/20/22 04:12 Lymph # (Auto) 2.2 10^3/uL (0.8-4.8) 02/20/22 04:12 Crook # (Auto) 0.5 10^3/uL (0.2-0.9) 02/20/22 04:12 Eos # (Auto) 0.1 10^3/uL (0.0-0.8) 02/20/22 04:12 Baso # (Auto) 0.0 10^3/uL (0.0-0.1) 02/20/22 04:12 Nucleated RBC % (auto) 0 % 02/20/22 04:12 Nucleated RBCs # 0.0 /100WBC 02/20/22 04:12 ESR 2 mm/hr (0-15) 02/19/22 01:54 D-Dimer 0.66 ug/mIFEU (0-0.59) H 02/18/22 17:35 Sodium 136 mmol/L (136-145) 02/20/22 04:12 Potassium 3.9 mmol/L (3.5-5.1) 02/20/22 04:12 Chloride 103 mmol/L (98-107) 02/20/22 04:12 Carbon Dioxide 26 mmol/L (22-29) 02/20/22 04:12 Anion Gap 10.9 (5-19) 02/20/22 04:12 BUN 14 mg/dL (8-23) 02/20/22 04:12 Creatinine 0.5 mg/dL (0.5-0.9) 02/20/22 04:12 GFR Calculation 123.4 mL/min (90-130) 02/20/22 04:12 Glucose 85 mg/dL (65-115) 02/20/22 04:12 POC Glucose 78 mg/dL (70-110) 02/19/22 17:20 Estimat Average Glucose 91 02/18/22 17:35 Hemoglobin A1c 4.8 % (4.0-6.0) 02/18/22 17:35 Calculated Osmolality 282 mOsm/kg (285-295) L 02/20/22 04:12 Calcium 8.4 mg/dL (8.5-10.5) L 02/20/22 04:12 Magnesium 1.8 mg/dL (1.7-2.3) 02/19/22 01:54 Total Bilirubin 0.2 mg/dL (0.15-1.2) 02/18/22 17:35 AST 11 U/L (0-32) 02/18/22 17:35 ALT < 5 U/L (0-33) 02/18/22 17:35 Alkaline Phosphatase 52 IU/L (35-105) 02/18/22 17:35 Troponin T Baseline 8 ng/L (0-10) 02/18/22 17:35 Troponin T 120 Minute 7.87 ng/L (0-10) 02/18/22 18:48 Delta Troponin T -0.07 ABS# (0-10) L 02/18/22 18:48 Troponin T Hi Sens 6Hr 8.92 ng/L (0-10) 02/18/22 22:50 Troponin T Hi Sens 6Hr Delta 0.92 ng/L (0-12) 02/18/22 22:50 C-Reactive Protein 3.0 mg/L (0.0-4.9) 02/18/22 17:35 Total Protein 6.1 g/dL (6.6-8.7) L 02/18/22 17:35 Albumin 3.6 g/dL (3.5-5.2) 02/18/22 17:35 Globulin 2.5 g/dL (1.3-4.6) 02/18/22 17:35 TSH 1.76 uIU/mL (0.27-4.20) 02/18/22 17:35 Misc Test Reference Cancelled 02/19/22 01:54 Vitals Last Vital Signs Temp 98.0 F 02/20/22 04:56 Pulse 58 L 02/20/22 08:27 Resp 16 02/20/22 08:27 BP 178/85 02/20/22 04:56 Pulse Ox 96 02/20/22 08:27 Discharge Plan Discharge Patient Disposition: Home Condition: Stable Prescriptions: New atorvastatin 40 mg Tablet 40 mg PO DAILY Qty: 90 3RF isosorbide mononitrate 30 mg Tablet Extended Release 24 Hr 30 mg PO DAILY Qty: 90 0RF lisinopril 10 mg Tablet 10 mg PO DAILY Qty: 90 2RF Continued ropinirole 1 mg tablet 1 mg PO BEDTIME 0RF escitalopram oxalate 20 mg tablet 20 mg PO DAILY 0RF lorazepam 1 mg tablet 1 mg PO BID PRN (Reason: Anxiety) 0RF propranolol 40 mg tablet 40 mg PO BID 0RF bupropion HCl 150 mg tablet extended release 24 hr 150 mg PO QAM 0RF pantoprazole 40 mg tablet,delayed release (DR/EC) 40 mg PO DAILY 0RF carbamazepine 200 mg tablet See Rx Instructions .ROUTE .COMPLEX 0RF Rx Instructions: 200mg po in the am and pm and 400mg at bedtime ergocalciferol (vitamin D2) 1,250 mcg (50,000 unit) capsule 50,000 unit PO Q7D 0RF Rx Instructions: on sat tizanidine 4 mg tablet 4 mg PO BEDTIME 0RF divalproex 250 mg tablet extended release 24 hr 500 mg PO BID 0RF Changed aspirin 81 mg tablet,chewable 81 mg PO BEDTIME Qty: 60 0RF propranolol 40 mg tablet 10 mg PO BID Qty: 0 0RF Discontinued potassium chloride 20 mEq tablet extended release 20 meq PO QPM 0RF Discharge Orders: Discharge Order (Routine); Ordered 02/20/22 Ordered By: Checo Browning Referrals: Chris Miranda MD [Physician] - 2 weeks (Please call Tuesday to schedule a follow up appointment carotid disease) Sue Pelayo FNP [Nurse Practitioner] - 7-10 days (Please call Tuesday to schedule a follow up appointment. Check right radial artery area, chemistry panel and reassess carotid duplex schedule CTA of the carotids.) Shireen Goode MD [Physician] - 1 month (Please call Tuesday to schedule a follow up appointment.) Ines New [Primary Care Provider] - (Please call Tuesday to schedule a follow up appointment.) Discharge Diet: Cardiac Discharge Activity: Increase activity as tolerated Patient Instructions: Angina, Lisinopril (By mouth), Isosorbide Mononitrate (By mouth) (Imdur, Imdur ER, Ismo), Atorvastatin (By mouth), Heart Failure (ED), Coronary Artery Disease (GEN), Chest Pain (ED), CHF Stoplight, Chest Pain Stoplight, Opioid Safety Activity Restrictions/Additional Instructions: No lifting over 5 pounds for 2 days with the right upper extremity. Discharge Attestations Time Spent in Discharge Care*: less than 30 min Quality Metrics Clinical Quality Measures [ No reported AMI, CVA or VTE this stay] Coding Level of Care Code Acute Chg FW DC note Diagnoses Chest pain R07.9 PAD (peripheral artery disease) I73.9 Seizure R56.9 Hyperlipidemia E78.2 Hyperlipidemia type: mixed hyperlipidemia Hypertension I10 CAD (coronary artery disease) I25.10 Carotid stenosis I65.29 Tobacco abuse Z72.0
--- NOTE | 2022-02-20 14:24 | PC.NURSE ---
discharge instructions given and explained.pt verb understanding of instructions.will have ct of head and neck...and then will be taken to exit via w/c.pt's friend to drive pt home.
[2022-02-20] MEDS: iohexol 350 mg/mL 100 mL Btl IV (14:27)
== END 2022-02-20 14:25 | disposition home or self-care (01) | DRG 287 ==
LOC: ER 17:30 → MEDSURG 19:41
PROVIDERS: Internal Medicine Cardiovascular Disease; Admitting Provider Internal Medicine; Emergency Provider Family Medicine; PCP Nurse Practitioner Family; Visit Provider Internal Medicine
PROC: 4A023N7 Measurement of Cardiac Sampling and Pressure, Left Heart, Percutaneous Approach (ICD-10-PCS; principal; 2022-02-19 13:00)
DX: I25.110 Atherosclerotic heart disease of native coronary artery with unstable angina pectoris (principal); I50.22 Chronic systolic (congestive) heart failure; I25.82 Chronic total occlusion of coronary artery; I73.9 Peripheral vascular disease, unspecified; F17.210 Nicotine dependence, cigarettes, uncomplicated; I11.0 Hypertensive heart disease with heart failure; E78.2 Mixed hyperlipidemia; R29.810 Facial weakness; I65.21 Occlusion and stenosis of right carotid artery
CPT/HCPCS: 36415; 36416; 70450; 70496; 70498; 71045; 80048; 80053; 82962; 83036; 83735; 84443; 84484; 85025; 85378; 85651; 86140; 93005; 93306; 93452; 93458; 96360; 96372; 99152; 99153; 99285; C1769; C1887; C1894; G0378; J1200; J1644; J1650; J2250; J3010; J3490; J7030; Q9967

== ENCOUNTER → 2022-03-11 09:15 | Outpatient (BNVA) | payer MEDICARE, MEDICAID, SELFPAY | PROVIDERS: PCP Nurse Practitioner Family; Visit Provider Nurse Practitioner Family | DX: I25.10 Atherosclerotic heart disease of native coronary artery without angina pectoris (principal); I11.0 Hypertensive heart disease with heart failure; I50.22 Chronic systolic (congestive) heart failure; F17.200 Nicotine dependence, unspecified, uncomplicated; I65.23 Occlusion and stenosis of bilateral carotid arteries | CPT/HCPCS: 99203; 99214 ==

== ENCOUNTER 2022-11-12 14:11 | Outpatient (CLI) | payer MEDICARE, MEDICAID, SELFPAY ==
--- NOTE | 2022-11-12 14:15 | USCV_ITS ---
Chino Edwige Age: 67 Gender: F : 1955 Exam Date: 11/12/2022 14:33 Ordering Phys: Chris Miranda MD (Andy) ([email or web address] [place]) Technologist: Exam Location: [facility] [place] Indication: hx of cca stenosis Risk Factors: Previous Vascular Surgery: Right Brachial BP: / Left Brachial BP: / Right Left Velocity (cm/s) Spectral Plaque Velocity (cm/s) Spectral Plaque Syst/Diast Broadening Syst/Diast Broadening 57.50/ 14.00 Prox CCA 47.30 / 10.50 50.50/ 14.00 Mid CCA 46.00 / 11.20 50.50/ 13.20 Anam Distal CCA 42.10 / 10.50 Anam 53.90/ 14.50 Hetro Prox ICA 53.80 / 12.80 Hetro 187.10/48.60 Hetro Mid ICA 138.50/ 36.00 Hetro 188.90/59.40 Distal ICA 131.30/ 36.00 187.00 ECA 60.50 3.29 ICA/CCA 2.93 Antegrade Vertebral Antegrade 42.10/ 10.50 cm/s 41.20/ 7.80 cm/s Bi Subclavian Bi 78.90 104.1 0 CONCLUSIONS Right ICA stenosis <50%. Elevated PSV in the mid and distal RIGHT ICA. Recommend CTA in further evaluation. Moderate atheromatous plaque right carotid bulb/ICA. Left ICA stenosis <50%. Moderate atheromatous plaque left carotid bulb/ICA. Calcified plaque both CCA's Normal antegrade Doppler flow noted in the right vertebral artery. Normal antegrade Doppler flow noted in the left vertebral artery. Gabriele Joyner MD (Electronically Signed) Final Date: 12 November 2022 18:13 S
== END 2022-11-12 14:12 | disposition home or self-care (01) ==
LOC: RAD 14:15
PROVIDERS: PCP Nurse Practitioner Family; Visit Provider Thoracic Surgery (Cardiothoracic Vascular Surgery)
DX: I65.23 Occlusion and stenosis of bilateral carotid arteries (principal)
CPT/HCPCS: 93880

== ENCOUNTER → 2022-11-18 08:00 | Outpatient (BNVA) | payer MEDICARE, MEDICAID, SELFPAY | PROVIDERS: PCP Nurse Practitioner Family; Visit Provider Thoracic Surgery (Cardiothoracic Vascular Surgery) | DX: I65.23 Occlusion and stenosis of bilateral carotid arteries (principal); F17.210 Nicotine dependence, cigarettes, uncomplicated | CPT/HCPCS: 99213 ==

== ENCOUNTER 2023-02-09 13:40 | Outpatient (CLI) | payer MEDICARE, MEDICAID, SELFPAY ==
--- NOTE | 2023-02-09 14:00 | CT_ITS ---
WS: [id number] CT ANGIOGRAPHY OF THE ABDOMINAL AORTA WITH RUNOFF TO THE ANKLES HISTORY: I73.9 - Peripheral vascular disease, unspecified TECHNIQUE: Arterial injection is performed during imaging to evaluate the aorta and runoff vessels to the ankles. MIP and volume rendering imaging has also been performed. All images are reviewed. All C T scans at [facility] use at least one of these dose optimization techniques: automated exposu re control; mA and/or kV adjustment per patient size (includes targeted exams where dose is matched t o clinical indication); or iterative reconstruction. Contrast: Omnipaque 350; 100 mL IV. DLP: 514.36 mGy.cm COMPARISON: 05/29/2021 Lung bases are clear. Mild LEFT heart enlargement. Abdominal aorta: Moderate atherosclerotic plaque, nonaneurysmal. Plaque at the origin of the SMA and celiac axis with no occlusion. Mild stenosis SMA. Renal arteries are patent. RIGHT lower extremity arterial system: Calcified plaque continues into the common and external iliac arteries. Focal areas of noncalcified and calcified plaque. Internal and external iliac arteries are patent. Focal plaque and mild stenosis involving the bifurcation of the femoral artery. 50% stenosis origin of the SFA. Deep profunda is patent with plaque. Focal calcified plaque throughout the SFA in Narciso's canal. Increasing plaque through Narciso's canal. Increase in plaque burden with areas of hig h-grade stenosis through Narciso's canal and the popliteal artery. Dense calcified plaque is obscuring the lumen of the popliteal artery. High-grade stenosis versus complete occlusion in the popliteal ar ana. There are adjacent small caliber vessels consistent with arterial reconstitution. Small caliber arteries below the knee. Calcified plaque at the tibioperoneal bifurcation. Nonopacification of the vessels from the mid tibia distally. LEFT lower extremity arterial system: Dense calcified plaque in the common, internal and external ted ac arteries stenoses approaching 50%. Internal iliac artery is probably occluded. External iliac yoni ry is patent to the bifurcation. 50% stenosis involving the proximal SFA and deep profunda. Multifoca l areas of plaque throughout the SFA. 50% stenosis proximal SFA. Increasing plaque in the distal SFA into Anrciso's canal. Multifocal areas of significant stenosis. Dense calcified plaque at the poplitea l artery. If they are completely occluded with minimal flow present. Calcified plaque is obscuring th e lumen. Small caliber three-vessel runoff below the knee. Arteries only intermittently visualized. F rom the level of the mid tibia the opacification is limited. Irregular shaped low-attenuation within the superior RIGHT lobe liver was previously described is unc hanged. This area measures 3.1 x 1.8 cm and probably representing hemangioma. Prior cholecystectomy. Normal spleen and pancreas. Bilateral adrenal hyperplasia. Cortical atrophy of each kidney with a few too small to characterize hypodensity. No obstruction. No adenopathy or ascites. Scattered mild dive rticular burden distal colon. Severe RIGHT hip joint osteoarthritis with loss of the joint space. Anterior compression fractures T1 [address]/CT angio abd aorta runof [id number] IMPRESSION: 1. Moderate atherosclerotic plaque abdominal aorta with no aneurysm. 2. Mild progression of atherosclerotic plaque in the lower extremity arterial system with 2020. 3. Bilateral 50% stenosis proximal SFAs. 4. RIGHT SFA and popliteal artery: Scattered plaque greatest to Narciso's canal with multifocal areas of high-grade stenosis versus complete occlusion. Centra l lumen being obscured by calcified plaque. 5. LEFT SFA and popliteal artery: Multifocal areas of significant stenosis in volving the distal SFA and the popliteal artery. High-grade stenosis and possib le underlying complete occlusions. Dense calcified plaque is obscuring the lume n. 6. Bilateral small caliber arteries below the knee with poor runoff to the ank les bilaterally. 7. Stable liver lesion which is probably hemangioma. 8. Prior cholecystectomy.
[2023-02-09] MEDS: iohexol 350 mg/mL 500 mL Btl (per mL) IV (14:31)
== END 2023-02-09 13:41 | disposition home or self-care (01) ==
LOC: RAD 13:43
PROVIDERS: PCP Nurse Practitioner Family; Visit Provider Internal Medicine Cardiovascular Disease
DX: I70.203 Unspecified atherosclerosis of native arteries of extremities, bilateral legs (principal); I70.0 Atherosclerosis of aorta; K76.9 Liver disease, unspecified; Z90.49 Acquired absence of other specified parts of digestive tract
CPT/HCPCS: 75635; Q9967

== ENCOUNTER → 2023-10-20 10:32 | Outpatient (BNVA) | payer MEDICARE, MEDICAID, SELFPAY | PROVIDERS: PCP Nurse Practitioner Family; Visit Provider Nurse Practitioner Family | DX: I11.0 Hypertensive heart disease with heart failure (principal); I50.22 Chronic systolic (congestive) heart failure; I25.10 Atherosclerotic heart disease of native coronary artery without angina pectoris; I73.9 Peripheral vascular disease, unspecified; F17.210 Nicotine dependence, cigarettes, uncomplicated | CPT/HCPCS: 99214 ==

== ENCOUNTER → 2023-12-08 09:18 | Outpatient (BNVA) | payer MEDICARE, MEDICAID, SELFPAY | PROVIDERS: PCP Nurse Practitioner Family; Visit Provider Nurse Practitioner Family | DX: I73.9 Peripheral vascular disease, unspecified (principal); I25.10 Atherosclerotic heart disease of native coronary artery without angina pectoris; F17.210 Nicotine dependence, cigarettes, uncomplicated; I11.0 Hypertensive heart disease with heart failure; I50.9 Heart failure, unspecified | CPT/HCPCS: 99213 ==

== ENCOUNTER → 2024-04-25 14:03 | Outpatient (BNVA) | payer MEDICARE, MEDICAID, SELFPAY | PROVIDERS: PCP Nurse Practitioner Family; Visit Provider Internal Medicine | DX: I73.9 Peripheral vascular disease, unspecified (principal); I25.10 Atherosclerotic heart disease of native coronary artery without angina pectoris; I10 Essential (primary) hypertension; F17.200 Nicotine dependence, unspecified, uncomplicated | CPT/HCPCS: 99214 ==